=== PATIENT | female | born 1955 | race Caucasian/White ===

== ENCOUNTER 2019-11-24 12:12 | IRF | payer MEDICARE, SELFPAY ==
--- NOTE | ~2019-11-24 | CT_ITS ---
EXAMINATION: CT brain wo con DATE: 11/28/2019 20:06 INDICATION: Recent right-sided weakness with more acute confusion and speech deficit. TECHNIQUE: Computed tomography (CT) of the head was performed without intravenous contrast. Sagittal and coronal reconstructions were performed. The mA was adjusted according to patient size. Iterative reconstruction technique was employed. The dose-length product was 605.33 mGy-cm. COMPARISON: head CT dated 02/12/2018 and brain MR dated 02/13/2018 FINDINGS: Multiple small regions of encephalomalacia along the bilateral medial frontal and parietal lobes with large region of encephalomalacia in the left frontoparietal region consistent with chronic infarcts. Additional moderate sized region of encephalomalacia consistent with chronic infarct in the left tem glow-sbbrvjt-gdvpkliso region. Small old lacunar infarct at the right thalamus. No acute intracranial hemorrhage, acute infarction or abnormal extra axial fluid collection. Ventricles are normal and sym metric. No mass/mass effect. Mucosal thickening in the left maxillary and bilateral ethmoid sinuses. The orbits and mastoid air cells are normal. Intracranial calcified cerebral atherosclerosis is noted . IMPRESSION: 1. Multiple chronic infarcts in the bilateral cerebral hemispheres and in the right thalamus as detai led above. No evident acute intracranial process. Reviewed, dictated and finalized at location A. OR SALES MANAGER IMPRESSION: 1. Multiple chronic infarcts in the bilateral cerebral hemispheres and in the r ight thalamus as detailed above. No evident acute intracranial process.
[2019-11-24 12:15] VITALS: BP 149/55; PULSE 77; RESP 19; TEMP 36.3; O2SAT 100; BMI 36.0
[2019-11-24 12:50] VITALS: BMI 36.4
--- NOTE | 2019-11-24 12:52 | ADMGEN ---
This patient, Norma Kern, was admitted to [facility] Room 222-02. Patient/family oriented to hospital policies and general routines including ID bracelet, bed and alarms, visiting hours, pain management, procedures, bathroom and other care routines, personal items, smoking policy, room service/diet, and visiting hours. Valuables list has been completed. Information on how to activate the Rapid Response Team has been discussed. Patient/Family are encouraged to report perceived risks to care and to ask questions if they do not understand what they are told or what they should do.
[2019-11-24 13:44] LABS: Glucose Point of Care 202 (65-105)
[2019-11-24 17:07] LABS: Glucose Point of Care 240 (65-105)
[2019-11-24] MEDS: INSULIN ASPART (*BKC) 100 UNITS/ML SUB-Q (17:17)
[2019-11-24] MEDS: APIXABAN 5 MG TABLET PO (17:19)
[2019-11-24] MEDS: glipiZIDE 5 MG TABLET PO (17:19)
[2019-11-24] MEDS: POTASSIUM CHLORIDE 20 MEQ PACKET (FOR LIQUID) PO (17:20)
[2019-11-24 20:54] LABS: Glucose Point of Care 118 (65-105)
[2019-11-24 21:30] VITALS: BP 110/72; PULSE 101; RESP 20; TEMP 36.6; O2SAT 98
[2019-11-25 05:25] LABS: Basophils Percent Auto 0.4 % (0.2-1.2); Eosinophils Absolute Auto 0.1 K/mm3 (0-0.3); Eosinophils Percent Auto 2.5 % (0-4.4); Hematocrit 34.1 % (37.0-47.0); Hemoglobin 10.8 g/dL (12.0-15.0); Immature Granulocyte Absolute 0.04 K/mm3 (0.00-0.031); Immature Granulocyte Percent A 0.7 % (0-0.5); Lymphocytes Absolute Auto 2.06 K/mm3 (0.9-3.2); Lymphocytes Percent Auto 36.7 % (18.3-44.2); Mean Corpuscular HGB Conc 31.7 g/dl (32-36); Mean Corpuscular Hemoglobin 27.5 pg (26-34); Mean Corpuscular Volume 86.8 fl (80-100); Mean Platelet Volume 12.3 fl (7.4-10.4); Monocytes Absolute Auto 0.6 K/mm3 (0.1-0.6); Monocytes Percent Auto 10.3 % (2.6-8.5); Neutrophils Absolute Auto 2.8 K/mm3 (1.3-6.7); Neutrophils Percent Auto 49.4 % (45.5-73.1); Platelet Count Result 150 k/mm3 (150-375); Red Blood Count 3.93 M/mm3 (4.2-5.4); Red Cell Distribution Width 13.4 % (11.5-14.5); White Blood Count 5.6 K/mm3 (4.5-10.0)
[2019-11-25 05:31] LABS: Blood Urea Nitrogen 25 mg/dL (7-17); Calcium 9.4 mg/dL (8.4-10.2); Carbon Dioxide 25 mmol/L (22-30); Chloride 105 mmol/L (98-107); Cholesterol 112 mg/dL (0-200); Estimated CRCL calculation 91 ml/min; Estimated Glomerular Filt Rate > 60; Glucose 117 mg/dL (65-105); HDL Direct 32 mg/dL; Potassium 4.3 mmol/L (3.4-5.0); Sodium 136 mmol/L (137-145); Triglycerides 45 mg/dL (<150)
[2019-11-25 05:42] LABS: LDL Cholesterol Direct 70 mg/dL
[2019-11-25 06:00] VITALS: BP 120/52; PULSE 61; RESP 20; TEMP 36.9; O2SAT 97
[2019-11-25] MEDS: glipiZIDE 5 MG TABLET PO ×2 (06:53→17:41)
[2019-11-25 06:59] LABS: Glucose Point of Care 152 (65-105)
[2019-11-25] MEDS: AMLODIPINE BESYLATE 5 MG TABLET PO (08:52)
[2019-11-25] MEDS: FUROSEMIDE 40 MG TABLET PO (08:53)
[2019-11-25] MEDS: ATORVASTATIN 40 MG TABLET PO (08:53)
[2019-11-25] MEDS: APIXABAN 5 MG TABLET PO ×2 (08:53→17:40)
[2019-11-25] MEDS: ASPIRIN 325 MG ENTERIC TABLET PO (08:53)
[2019-11-25] MEDS: CHOLECALCIFEROL 1,000 UNIT TABLET 1000 UNITS PO (08:53)
[2019-11-25] MEDS: lisinopriL 20 MG TABLET 40 MG PO (08:54)
[2019-11-25] MEDS: PIOGLITAZONE HCL 30 MG TABLET PO (08:54)
[2019-11-25] MEDS: POTASSIUM CHLORIDE 20 MEQ PACKET (FOR LIQUID) PO ×2 (08:55→17:41)
[2019-11-25] MEDS: TAMSULOSIN HCL 0.4 MG CAPSULE PO (08:55)
--- NOTE | 2019-11-25 09:30 | WPDREHABHP ---
H&P: HPI History of Present Illness Chief complaint: CVA Narrative: Norma Kern is a 64 year old femaleHISTORY OF PRESENT ILLNESS: The patient's primary rehab impairment category is 0 1-stroke The etiologic diagnosis is left frontal and parietal stroke I saw this patient [id number] on November 25, 2019 at 9:30 a.m. The patient is a 64-year-old right-handed woman with a past medical history of strokes with right-sided weakness, CHF and type 2 diabetes mellitus who presented to [facility] on November 19, 2019 with an acute onset of weakness on her right side. The patient had been off her aspirin and Eliquis for the past 5 days prior to admission in preparation for a colonoscopy. CT of the head was negative for any acute abnormality and CTA of the head and neck showed an occluded right internal carotid artery beginning at the level of the bifurcation, proximal ICA high-grade stenosis, left vertebral artery intracranial segment calcific disease with moderate stenosis. She received tPA and was admitted to ICU for further treatment. Neurology was consulted and patient was started on apixaban and aspirin. The bedside swallowing study was completed and speech and language pathologist phone no sign or symptoms of aspiration or dysphagia. Patient was recommended for regular consistency diet with thin liquids. Medical complications during the hospital stay include new right-sided hemiparesis acute kidney injury and hypertension. Hypertension is being managed with medication changes and will need to be monitored and managed to about her rehab stay. She presents alert and oriented x3 and demonstrates impaired balance decreased coordination and decreased strength and endurance. She has right-sided hemiparesis over arm is much more affected particularly the proximal musculature than the leg she will be on Eliquis which will be sufficient for stroke prevention and also on DVT prophylaxis Therapy was initiated at the acute care facility and the patient transferred to us from [facility] in [place] on November 24, 2019 on November 24, 2019 FALLS OR SURGERIES: The patient has had no major surgeries in the 100 days prior to admission. They had no falls in the past year. They had no falls with injury in the past year. PAST MEDICAL HISTORY: abnormal mammogram, bilateral [place] carotid artery stenosis, fall, hypertension, nephrolithiasis, Osteo arthrosis, type 2 diabetes mellitus, ureteral stone, strokes 1 in 2017 and prior to that to in 2014, congestive heart failure, arthritis, chronic cellulitis, ejection fraction 65%, grade 2 diastolic dysfunction, positive colic guard test September 01, 2019, incontinence and urgency, on intended weight loss of 100 pounds due to increased intact and history of tobacco use PAST SURGICAL HISTORY: appendectomy, colonoscopy, exploratory laparoscopy, and also hemorrhoid ligation multiple times for internal hemorrhoids SOCIAL HISTORY: patient lives with her granddaughter and 1 level home with them to enter. Patient reported she was independent with ADLs and functional transfers. She requires assistance with ambulation and home making tasks. She uses a transport wheelchair or rolling walker when ambulating. FAMILY HISTORY: Mother had breast cancer, social history patient is a former school smoker she denies alcohol or illicit use of drugs PRIOR LEVEL OF FUNCTION: Eating was INDEPENDENT Oral Care was INDEPENDENT Toileting Hygiene was INDEPENDENT Shower/Bathing was INDEPENDENT Upper Body Dressing was INDEPENDENT Lower Body Dressing was INDEPENDENT Donning/Falling Water Footwear was INDEPENDENT Rolling Left and Right was INDEPENDENT Sit to Lying was INDEPENDENT Lying to Sitting was INDEPENDENT Sit to Stand was INDEPENDENT Bed to Chair Transfers was INDEPENDENT Toilet Transfers was INDEPENDENT Walking was INDEPENDENT >500 feet with NO DEVICE Wheelchair Mobility was NOT APPLICABLE MT
[2019-11-25 11:49] LABS: Glucose Point of Care 183 (65-105)
[2019-11-25 14:00] VITALS: BP 109/35; PULSE 61; RESP 18; TEMP 36.4; O2SAT 100
[2019-11-25 15:02] VITALS: BMI 36.4
--- NOTE | 2019-11-25 15:30 | PCNSR ---
On 11/25/19, the student, Susanne Christensen, provided care and completed [facility] documentation on this patient. I have reviewed the student's documentation and agree with the findings.
--- NOTE | 2019-11-25 16:29 | PCCCNOTE ---
On 11/25/19, the student, [Stan Patel ], provided care and completed [facility] documentation on this patient. I have reviewed the student's documentation and agree with the findings.
[2019-11-25 17:46] LABS: Glucose Point of Care 123 (65-105)
[2019-11-25 20:14] LABS: Glucose Point of Care 215 (65-105)
[2019-11-25 22:00] VITALS: BP 129/49; PULSE 62; RESP 20; TEMP 37.1; O2SAT 95
[2019-11-26 06:00] VITALS: BP 122/56; PULSE 68; RESP 20; TEMP 36.8; O2SAT 97
[2019-11-26] MEDS: glipiZIDE 5 MG TABLET PO ×2 (07:02→17:25)
[2019-11-26 07:09] LABS: Glucose Point of Care 153 (65-105)
[2019-11-26 08:00] VITALS: PULSE 68; RESP 20; O2SAT 97
[2019-11-26] MEDS: ATORVASTATIN 40 MG TABLET PO (08:36)
[2019-11-26] MEDS: APIXABAN 5 MG TABLET PO ×2 (08:37→17:25)
[2019-11-26] MEDS: ASPIRIN 81 MG ENTERIC TABLET PO (08:37)
[2019-11-26] MEDS: AMLODIPINE BESYLATE 5 MG TABLET 10 MG PO (08:37)
[2019-11-26] MEDS: CHOLECALCIFEROL 1,000 UNIT TABLET 1000 UNITS PO (08:37)
[2019-11-26] MEDS: FUROSEMIDE 40 MG TABLET PO (08:38)
[2019-11-26] MEDS: lisinopriL 20 MG TABLET 40 MG PO (08:38)
[2019-11-26] MEDS: TAMSULOSIN HCL 0.4 MG CAPSULE PO (08:38)
[2019-11-26] MEDS: PIOGLITAZONE HCL 30 MG TABLET PO (08:38)
--- NOTE | 2019-11-26 09:43 | RPD ---
INDIVIDUALIZED PLAN OF CARE FOR Norma Kern Brief Synthesis of Pre-Admission Screen, Post-Admission Evaluation and Therapy Evaluations: The patient presents to rehab with Left frontal and parietal stroke. Comorbidities include Lower extremity edema, insomnia, prior CVA with residual right-side weakness, occluded right internal carotid artery, left carotid artery bifurcation, proximal ICA with high-grade stenosis, hypertension, non-insulin dependent diabetes mellitus, chronic diastolic heart failure. The patient requires physician services for neurology services, medical oversight, and coordination of care. The patient needs physician monitoring and treatment of hypertension and monitoring for adverse reactions to new medications. The patient requires nursing services for frequent neuro checks, anticoagulation therapy, medication management and education, pressure relief and skin care management, monitoring of labs, bowel and bladder training, diabetes management and education, and fall/safety precautions. Deficits include:ADLs, Balance, Endurance, Mobility, Pain Management, ROM, Safety, Strength,Transfers Storage Wharfage Clerk/Case Management for: Discharge Planning and Patient/Family Counseling Physical Therapy: 5 days per week for 90 minutes. Treatments may include: Therapeutic Exercise, Gait Training, Neuromuscular Re-education, Transfer Training, Community Reintegration, Bed Mobility, Patient/Family Education, Wheelchair Mobility Group Therapy/Concurrent Therapy Rationales: -Improve attention span during functional activities in a distracted environment. -Enhance problem solving and/or adequate judgment skills during functional activities in a distracted environment. -Promote increased safety awareness in a distracted environment to reduce fall risk with functional tasks, transfers, and ambulation to allow a more safe, self-sufficient return to the home environment. -Improve dynamic balance skills to promote safety and independence with functional activities in a distracted environment for maximum gain. Occupational Therapy: 5 days per week for 90 minutes. Treatments may include: Therapeutic Exercise, Therapeutic Activity, Cognitive Training, Self-Care Transfer Training, Community Reintegration, Home Management, Patient/Family Education, Wheelchair Mobility Training, Energy Conservation Training Group Therapy/Concurrent Therapy Rationales: -Allow therapist to observe and teach generalization and carry-over of skills learned in individual therapy. -Enhance problem solving and sequencing skills during therapeutic activities in a distracted environment. -Promote increased safety awareness in a realistic setting to reduce fall risk with functional tasks due to visual and verbal distractions. -Increase functional level with ADLs, ADL transfers and use of adaptive equipment through therapeutic activities with others while promoting safety to allow a more safe, self-sufficient return home. Medical Prognosis: Good Anticipated Length of Stay: 12 days Rehab Goals: Eating Goal: 06-Independent Oral Hygiene Goal: 06-Independent Toileting Hygiene Goal: 04-Supervision or Touching Assistance Shower/Bathe Self Goal: 05-Setup or Clean Up Assistance Upper Body Dressing Goal: 05-Setup or Clean Up Assistance Lower Body Dressing Goal: 05-Setup or Clean Up Assistance Putting On/Taking Off Footwear Goal: 05-Setup or Clean Up Assistance Rolling Left and Right Goal: 06-Independent Sit to Lying Goal: 06-Independent Lying to Sitting on Side of Bed Goal: 06-Independent Sit to Stand Goal: 06-Independent Chair/Jkw-ro-Opzbl Transfer Goal: 06-Independent Toilet Transfer Goal: 06-Independent Car Transfer Goal: 05-Setup or Clean Up Assistance Walk 10' Goal: 06-Independent Walk 50' with Two Turns Goal: 06-Independent Walk 150' Goal: 06-Independent Walk 10' on Uneven Surface Goal: 06-Independent 1 Step (Curb) Goal: 05-Setup or Clean Up Assistance 4 Steps Goal: 05-Setup or Mame
[2019-11-26 12:27] LABS: Glucose Point of Care 147 (65-105)
--- NOTE | 2019-11-26 12:30 | WPDNEURORHBP ---
Subjective Date/time seen: 11/26/19 12:30 Interval history: patient is here for stroke with the right side hemiparesis and engage in therapy does not have any new specific complaints In particular she denies any headache double vision blurred vision chest pain shortness of breath fever chills sore throat diarrhea abdominal pain or any urinary or bowel problems Review of Systems Constitutional: Constitutional: Reports no additional constitutional complaints Eyes: Eyes: Reports no additional eye complaints ENT: Reports system reviewed and no additional complaints, except as documented Cardiovascular: Cardiovascular: Reports no additional cardiovascular complaints Respiratory: Respiratory: Reports no additional respiratory complaints Gastrointestinal: Gastrointestinal: Reports no additional gastrointestinal complaints Genitourinary: Genitourinary: Reports no additional female genitourinary complaints Musculoskeletal: Musculoskeletal: Reports no additional musculoskeletal complaints Integumentary/Breasts: Skin/Breast: Reports system reviewed and no additional complaints, except as docu Neurologic: Reports system reviewed and no additional complaints, except as documented Psychiatric: Psychiatric: Reports no additional psychiatric complaints Functional Status Ambulation Ability Ability to Ambulate 10 Feet: Minimum Assistance X 1 Ability to Ambulate 50 Feet With 2 Turns: Minimum Assistance X 1 Ambulation Assistive Devices: Walker, Wheeled Transfers Ability Ability to Transfer In/Out of Chair: Moderate Assistance X 1 Exam Const: General: comfortable and no acute distress HENMT: General nose exam: Normal nares present Mouth: Yes moist mucous membranes Eyes: General: appearance normal, both eyes and all related structures Neck: Neck: supple and no JVD Resp: Effort & Inspection: normal respiratory effort Auscultation: clear to auscultation bilaterally Cardio: Rate: regular rate Rhythm: regular rhythm GI: GI Palp: Yes Soft to palpation Auscultation: normal bowel sounds Skin: General skin exam: normal color and no rashes or lesions noted Neuro: Other: patient has fluent speech and relatively intact cranial examination but does have [id number] right-sided hemiparesis which is slowly improving she is quite motivated and engage in therapy and no new evidence of any further neurological deficit Extrem: General: normal to inspection Objective Data Vital Signs Vital Signs: Vital Signs - 24 hr 11/25/19 14:00 11/25/19 22:00 11/26/19 06:00 Temperature 36.4 C L 37.1 C 36.8 C Pulse Rate 61 62 68 Respiratory Rate 18 20 20 Blood Pressure 109/35 L 129/49 L 122/56 L Pulse Oximetry 100 95 97 11/26/19 08:00 Temperature Pulse Rate 68 Respiratory Rate 20 Blood Pressure Pulse Oximetry 97 Intake/Output Intake/Output: Intake & Output 11/23/19 11/24/19 11/25/19 11/26/19 23:59 23:59 23:59 23:59 Intake Total 480 840 Balance 480 840 Meds/Results Medications: Active Medications Generic Name Dose Route Start Last Admin Trade Name Freq PRN Reason Stop Dose Admin Amlodipine Besylate 10 mg 11/26/19 09:00 11/26/19 08:37 Norvasc PO 10 mg DAILY JOEY Administration Apixaban 5 mg 11/24/19 17:00 11/26/19 08:37 Eliquis PO 5 mg BID JOEY Administration Aspirin 81 mg 11/26/19 09:00 11/26/19 08:37 Aspirin Ec PO 81 mg DAILY JOEY Administration Atorvastatin Calcium 40 mg 11/25/19 09:00 11/26/19 08:36 Lipitor PO 40 mg DAILY JOEY Administration Dextrose 12.5 gm 11/24/19 14:00 Dextrose 50% Syringe IV PUSH PRN PRN Hypoglycemia Protocol Furosemide 40 mg 11/25/19 09:00 11/26/19 08:38 Lasix Tablet PO 40 mg DAILY JOEY Administration Glipizide 5 mg 11/24/19 16:30 11/26/19 07:02 Glucotrol PO 5 mg BIDAC JOEY Administration Glucagon 1 mg 11/24/19 14:00 Glucagon For Inj IM PRN PRN Hypoglycemia Protocol
[2019-11-26] MEDS: TOLNAFTATE 1% POWDER 45 GM BTL 1 APPLIC TOPICAL ×3 (12:44→17:26)
[2019-11-26] MEDS: POTASSIUM CHLORIDE 20 MEQ TABLET.ER PO (12:48)
[2019-11-26 15:00] VITALS: BP 97/32; PULSE 52; RESP 16; TEMP 36.3; O2SAT 97
[2019-11-26 17:21] LABS: Glucose Point of Care 158 (65-105)
[2019-11-26 22:00] VITALS: BP 114/45; PULSE 54; RESP 19; TEMP 36.3; O2SAT 97
[2019-11-27 06:00] VITALS: BP 150/51; PULSE 62; RESP 18; TEMP 36.3; O2SAT 97
[2019-11-27] MEDS: glipiZIDE 5 MG TABLET PO ×2 (06:34→18:20)
[2019-11-27 06:41] LABS: Glucose Point of Care 124 (65-105)
[2019-11-27] MEDS: POTASSIUM CHLORIDE 20 MEQ TABLET.ER PO (09:06)
[2019-11-27] MEDS: AMLODIPINE BESYLATE 5 MG TABLET 10 MG PO (09:07)
[2019-11-27] MEDS: ASPIRIN 81 MG ENTERIC TABLET PO (09:07)
[2019-11-27] MEDS: APIXABAN 5 MG TABLET PO ×2 (09:07→18:20)
[2019-11-27] MEDS: PIOGLITAZONE HCL 30 MG TABLET PO (09:08)
[2019-11-27] MEDS: TAMSULOSIN HCL 0.4 MG CAPSULE PO (09:08)
[2019-11-27] MEDS: lisinopriL 20 MG TABLET 40 MG PO (09:08)
[2019-11-27] MEDS: FUROSEMIDE 40 MG TABLET PO (09:08)
[2019-11-27] MEDS: ATORVASTATIN 40 MG TABLET PO (09:08)
[2019-11-27] MEDS: INSULIN ASPART (*BKC) 100 UNITS/ML SUB-Q (09:09)
[2019-11-27] MEDS: TOLNAFTATE 1% POWDER 45 GM BTL 1 APPLIC TOPICAL ×3 (09:10→19:35)
[2019-11-27] MEDS: CHOLECALCIFEROL 1,000 UNIT TABLET 1000 UNITS PO (09:11)
[2019-11-27 12:25] LABS: Glucose Point of Care 125 (65-105)
[2019-11-27 14:00] VITALS: BP 99/31; PULSE 69; RESP 18; TEMP 36.6; O2SAT 90
[2019-11-27 17:47] LABS: Glucose Point of Care 106 (65-105)
[2019-11-27 19:41] LABS: Glucose Point of Care 186 (65-105)
[2019-11-27 22:00] VITALS: BP 95/33; PULSE 63; RESP 19; TEMP 36.7; O2SAT 96
[2019-11-28 06:00] VITALS: BP 141/51; PULSE 58; RESP 19; TEMP 36.2; O2SAT 100
[2019-11-28] MEDS: glipiZIDE 5 MG TABLET PO ×2 (07:00→17:53)
[2019-11-28 07:16] LABS: Glucose Point of Care 135 (65-105)
[2019-11-28] MEDS: AMLODIPINE BESYLATE 5 MG TABLET 10 MG PO (08:03)
[2019-11-28] MEDS: POTASSIUM CHLORIDE 20 MEQ TABLET.ER PO (08:03)
[2019-11-28] MEDS: ATORVASTATIN 40 MG TABLET PO (08:04)
[2019-11-28] MEDS: CHOLECALCIFEROL 1,000 UNIT TABLET 1000 UNITS PO (08:04)
[2019-11-28] MEDS: lisinopriL 20 MG TABLET PO (08:04)
[2019-11-28] MEDS: ASPIRIN 81 MG ENTERIC TABLET PO (08:04)
[2019-11-28] MEDS: APIXABAN 5 MG TABLET PO ×2 (08:04→17:53)
[2019-11-28] MEDS: FUROSEMIDE 40 MG TABLET PO (08:04)
[2019-11-28] MEDS: TOLNAFTATE 1% POWDER 45 GM BTL 1 APPLIC TOPICAL ×3 (08:05→17:56)
[2019-11-28] MEDS: PIOGLITAZONE HCL 30 MG TABLET PO (08:05)
[2019-11-28] MEDS: TAMSULOSIN HCL 0.4 MG CAPSULE PO (08:05)
[2019-11-28] MEDS: ACETAMINOPHEN 325 MG TABLET 650 MG PO (11:59)
[2019-11-28 12:14] LABS: Glucose Point of Care 161 (65-105)
[2019-11-28 14:00] VITALS: BP 110/53; PULSE 62; RESP 18; TEMP 36.9; O2SAT 99
--- NOTE | 2019-11-28 14:10 | WPDNEURORHBP ---
Subjective Date/time seen: 11/28/19 14:10 Interval history: patient is little tired and fatigued after the therapy however does not have any complains of headache chest pain shortness of breath nausea vomiting diarrhea fevers or chills she does not have any other neurological complains also apart from the fact that she still show signs of right-sided hemiparesis which is in fact is improving rather slowly Review of Systems Constitutional: Constitutional: Reports no additional constitutional complaints Eyes: Eyes: Reports no additional eye complaints ENT: Reports system reviewed and no additional complaints, except as documented Cardiovascular: Cardiovascular: Reports no additional cardiovascular complaints Respiratory: Respiratory: Reports no additional respiratory complaints Gastrointestinal: Gastrointestinal: Reports no additional gastrointestinal complaints Genitourinary: Genitourinary: Reports no additional female genitourinary complaints Musculoskeletal: Musculoskeletal: Reports no additional musculoskeletal complaints Integumentary/Breasts: Skin/Breast: Reports system reviewed and no additional complaints, except as docu Neurologic: Reports system reviewed and no additional complaints, except as documented Psychiatric: Psychiatric: Reports no additional psychiatric complaints Functional Status Ambulation Ability Ability to Ambulate 10 Feet: Minimum Assistance X 1 Ability to Ambulate 50 Feet With 2 Turns: Minimum Assistance X 1 Ambulation Assistive Devices: Walker, Wheeled Transfers Ability Ability to Transfer In/Out of Chair: Moderate Assistance X 1 Exam Const: General: comfortable and no acute distress HENMT: General nose exam: Normal nares present Mouth: Yes moist mucous membranes Eyes: General: appearance normal, both eyes and all related structures Neck: Neck: supple and no JVD Resp: Effort & Inspection: normal respiratory effort Auscultation: clear to auscultation bilaterally Cardio: Rate: regular rate Rhythm: regular rhythm GI: GI Palp: Yes Soft to palpation Auscultation: normal bowel sounds : External Female Exam: normal external appearance Skin: General skin exam: normal color and no rashes or lesions noted Neuro: Other: mild memory deficit and moderately severe right-sided hemiparesis needing assistance all the activities of daily living Extrem: General: normal to inspection Objective Data Vital Signs Vital Signs: Vital Signs - 24 hr 11/27/19 22:00 11/28/19 06:00 Temperature 36.7 C 36.2 C L Pulse Rate 63 58 L Respiratory Rate 19 19 Blood Pressure 95/33 L 141/51 H Pulse Oximetry 96 100 Intake/Output Intake/Output: Intake & Output 11/25/19 11/26/19 11/27/19 11/28/19 23:59 23:59 23:59 23:59 Intake Total 840 920 600 480 Balance 840 920 600 480 Meds/Results Medications: Active Medications Generic Name Dose Route Start Last Admin Trade Name Freq PRN Reason Stop Dose Admin Acetaminophen 650 mg 11/28/19 11:18 11/28/19 11:59 Tylenol Tablet PO 650 mg Q6H PRN Administration Mild Pain (1-3) or Fever Amlodipine Besylate 10 mg 11/26/19 09:00 11/28/19 08:03 Norvasc PO 10 mg DAILY JOEY Administration Apixaban 5 mg 11/24/19 17:00 11/28/19 08:04 Eliquis PO 5 mg BID JOEY Administration Aspirin 81 mg 11/26/19 09:00 11/28/19 08:04 Aspirin Ec PO 81 mg DAILY JOEY Administration Atorvastatin Calcium 40 mg 11/25/19 09:00 11/28/19 08:04 Lipitor PO 40 mg DAILY JOEY Administration Dextrose 12.5 gm 11/24/19 14:00 Dextrose 50% Syringe IV PUSH PRN PRN Hypoglycemia Protocol Furosemide 40 mg 11/25/19 09:00 11/28/19 08:04 Lasix Tablet PO 40 mg DAILY JOEY Administration Glipizide 5 mg 11/24/19 16:30 11/28/19 07:00 Glucotrol PO 5 mg BIDAC JOEY Administration Glucagon 1 mg 11/24/19 14:00 Glucagon For Inj IM PRN PRN Hypoglycemia Protocol Glucose 15 gm
[2019-11-28 17:44] LABS: Glucose Point of Care 134 (65-105)
[2019-11-28 19:40] LABS: Glucose Point of Care 184 (65-105)
--- NOTE | 2019-11-28 19:40 | PC.NURSE ---
Pt with increased confusion, delayed speech, and word finding difficulties. Dr Avendaño notified and new orders received.
[2019-11-28 20:00] VITALS: BP 134/62; PULSE 74; RESP 18; TEMP 36.5; O2SAT 100
[2019-11-28 20:35] LABS: Glucose Point of Care 148 (65-105)
[2019-11-29 06:00] VITALS: BP 135/50; PULSE 66; RESP 20; TEMP 37; O2SAT 98
[2019-11-29] MEDS: glipiZIDE 5 MG TABLET PO ×2 (06:53→17:37)
[2019-11-29 07:06] LABS: Glucose Point of Care 116 (65-105)
[2019-11-29] MEDS: ASPIRIN 81 MG ENTERIC TABLET PO (09:19)
[2019-11-29] MEDS: ATORVASTATIN 40 MG TABLET PO (09:19)
[2019-11-29] MEDS: lisinopriL 20 MG TABLET PO (09:19)
[2019-11-29] MEDS: FUROSEMIDE 40 MG TABLET PO (09:19)
[2019-11-29] MEDS: PIOGLITAZONE HCL 30 MG TABLET PO (09:19)
[2019-11-29] MEDS: POTASSIUM CHLORIDE 20 MEQ TABLET.ER PO (09:19)
[2019-11-29] MEDS: APIXABAN 5 MG TABLET PO ×2 (09:20→17:37)
[2019-11-29] MEDS: AMLODIPINE BESYLATE 5 MG TABLET 10 MG PO (09:20)
[2019-11-29] MEDS: CHOLECALCIFEROL 1,000 UNIT TABLET 1000 UNITS PO (09:20)
[2019-11-29] MEDS: TAMSULOSIN HCL 0.4 MG CAPSULE PO (09:20)
[2019-11-29] MEDS: TOLNAFTATE 1% POWDER 45 GM BTL 1 APPLIC TOPICAL ×3 (09:21→20:41)
[2019-11-29 09:24] VITALS: BP 130/92; PULSE 76
--- NOTE | 2019-11-29 10:45 | PCPTNOTE ---
Norma Kern was evaluated for a wheeled walker on 11/29/2019 by this physical therapist assistant finance manager. The wheeled walker will resolve patient's mobility limitations and will be used for ADL's within the home. The patient can safely use the wheeled walker. ?The wheeled walker will resolve the patient?s mobility deficits, including decreased strength of right side, decreased balance and endurance.
[2019-11-29 12:26] LABS: Glucose Point of Care 99 (65-105)
[2019-11-29 14:00] VITALS: BP 117/40; PULSE 69; RESP 18; TEMP 36.7; O2SAT 100
[2019-11-29 17:25] LABS: Glucose Point of Care 108 (65-105)
[2019-11-29 21:30] LABS: Glucose Point of Care 123 (65-105)
[2019-11-29 22:00] VITALS: BP 119/40; PULSE 56; RESP 19; TEMP 36.6; O2SAT 96
[2019-11-30 06:00] VITALS: BP 146/54; PULSE 77; RESP 18; TEMP 36.7; O2SAT 99
[2019-11-30] MEDS: glipiZIDE 5 MG TABLET PO ×2 (06:48→17:23)
[2019-11-30 07:00] LABS: Glucose Point of Care 92 (65-105)
[2019-11-30 08:25] VITALS: BP 118/52; PULSE 83
[2019-11-30] MEDS: POTASSIUM CHLORIDE 20 MEQ TABLET.ER PO (10:50)
[2019-11-30] MEDS: ASPIRIN 81 MG ENTERIC TABLET PO (10:50)
[2019-11-30] MEDS: APIXABAN 5 MG TABLET PO ×2 (10:50→17:23)
[2019-11-30] MEDS: AMLODIPINE BESYLATE 5 MG TABLET 10 MG PO (10:50)
[2019-11-30] MEDS: ATORVASTATIN 40 MG TABLET PO (10:51)
[2019-11-30] MEDS: PIOGLITAZONE HCL 30 MG TABLET PO (10:51)
[2019-11-30] MEDS: CHOLECALCIFEROL 1,000 UNIT TABLET 1000 UNITS PO (10:51)
[2019-11-30] MEDS: FUROSEMIDE 40 MG TABLET PO (10:51)
[2019-11-30] MEDS: lisinopriL 20 MG TABLET PO (10:51)
[2019-11-30] MEDS: TAMSULOSIN HCL 0.4 MG CAPSULE PO (10:52)
[2019-11-30] MEDS: TOLNAFTATE 1% POWDER 45 GM BTL 1 APPLIC TOPICAL ×3 (10:52→17:24)
--- NOTE | 2019-11-30 11:07 | PCPTNOTE ---
Addendum entered by CODEY CHAVEZ 12/10/19 09:21: wheelchair note amended 12/10/19- patient requires 22 wheelchair width due to patient's measurement hip to hip is 21 . Original Note: Olena Laboy PTA completed an inpatient rehab wheelchair evaluation on Norma Kern on 11/30/2019. The patient is unable to safely and independently ambulate household distances due to their current impairments. Their diagnosis is CVA and their impairments include decreased strength, decreased endurance, decreased range of motion, decreased balance and lower extremity weakness. Norma's weight bearing status is weight-bearing as tolerated on the bilateral lower legs. The patient demonstrates significant functional mobility limitations that impair their ability to participate in mobility-related activities of daily living (MRADLs), including toileting, feeding, dressing, grooming, and bathing in the customary locations in the home. These limitations cannot be sufficiently resolved by the use of an appropriately fitted cane or walker. It is recommended that the patient utilize a wheelchair for functional mobility within the home in order to facilitate optimal safety, independence and participation in all MRADL's and adequately access their home environment on a regular basis. The patient's home provides adequate access between rooms, maneuvering space, and surfaces to accommodate the recommended wheelchair. The use of a wheelchair for functional mobility is strongly recommended and the patient is receptive to using the wheelchair. The use of this wheelchair will significantly improve the patient's ability to participate in MRADLS and the patient will use it on a regular basis in the home. This will facilitate optimal safety, independence, and participation. The patient has demonstrated sufficient physical and mental capabilities needed to safely propel a manual wheelchair that is provided in the home during a typical day. Recommended Wheelchair Frame: standard Recommended Wheelchair Size: 22 x20 Recommended Wheelchair Cushion:standard Wheelchair Leg Recommendations: swing away leg rests - Anti-tippers are recommended due to patient demonstrating increased risk for falls. They would benefit from anti-tippers with added safety and stabilization. Olena Laboy PTA 11-30-2019 Evaluating Therapist Date I agree with and certify that the above recommendation is medically necessary. Referring Physician Date I agree with and certify that the above recommendation is medically necessary. Referring Physician Date
[2019-11-30 12:07] LABS: Glucose Point of Care 145 (65-105)
--- NOTE | 2019-11-30 12:25 | WPDNEURORHBP ---
Subjective Date/time seen: 11/30/19 12:25 Interval history: this patient is here because of stroke affecting the left frontoparietal area with moderately severe right-sided hemiparesis and not much of speech defect over the weekend she did have some problem having trouble with word finding and the question was whether not she suffered another stroke however she is back to what she was before the CT brain reveals old strokes and nothing acute Patient denies any headache chest pain or shortness of breath she was present during the team conference throughout and was able to answers questions and also able to ask questions quite normally Review of Systems Constitutional: Constitutional: Reports no additional constitutional complaints Eyes: Eyes: Reports no additional eye complaints ENT: Reports system reviewed and no additional complaints, except as documented Cardiovascular: Cardiovascular: Reports no additional cardiovascular complaints Respiratory: Respiratory: Reports no additional respiratory complaints Gastrointestinal: Gastrointestinal: Reports no additional gastrointestinal complaints Genitourinary: Genitourinary: Reports no additional female genitourinary complaints Musculoskeletal: Musculoskeletal: Reports no additional musculoskeletal complaints Integumentary/Breasts: Skin/Breast: Reports system reviewed and no additional complaints, except as docu Neurologic: Reports system reviewed and no additional complaints, except as documented Psychiatric: Psychiatric: Reports no additional psychiatric complaints Functional Status Ambulation Ability Ability to Ambulate 10 Feet: Minimum Assistance X 1 Ability to Ambulate 50 Feet With 2 Turns: Minimum Assistance X 1 Ambulation Assistive Devices: Walker, Wheeled Transfers Ability Ability to Transfer In/Out of Chair: Moderate Assistance X 1 Exam Const: General: comfortable and no acute distress HENMT: General nose exam: Normal nares present Mouth: Yes moist mucous membranes Eyes: General: appearance normal, both eyes and all related structures Neck: Neck: supple and no JVD Resp: Effort & Inspection: normal respiratory effort Auscultation: clear to auscultation bilaterally Cardio: Rate: regular rate Rhythm: regular rhythm GI: GI Palp: Yes Soft to palpation Auscultation: normal bowel sounds Skin: General skin exam: normal color and no rashes or lesions noted Neuro: Other: remains alert will oriented time place and person does have some trouble word-finding and at times possibly a subtle but present aphasia she is improving as for as the right-sided weakness is concerned and making progress Extrem: General: normal to inspection Objective Data Vital Signs Vital Signs: Vital Signs - 24 hr 11/29/19 14:00 11/29/19 22:00 11/30/19 06:00 Temperature 36.7 C 36.6 C 36.7 C Pulse Rate 69 56 L 77 Respiratory Rate 18 19 18 Blood Pressure 117/40 L 119/40 L 146/54 H Pulse Oximetry 100 96 99 11/30/19 08:25 Temperature Pulse Rate 83 Respiratory Rate Blood Pressure 118/52 L Pulse Oximetry Intake/Output Intake/Output: Intake & Output 11/27/19 11/28/19 11/29/19 11/30/19 23:59 23:59 23:59 23:59 Intake Total 600 960 570 250 Balance 600 960 570 250 Meds/Results Medications: Active Medications Generic Name Dose Route Start Last Admin Trade Name Freq PRN Reason Stop Dose Admin Acetaminophen 650 mg 11/28/19 11:18 11/28/19 11:59 Tylenol Tablet PO 650 mg Q6H PRN Administration Mild Pain (1-3) or Fever Amlodipine Besylate 10 mg 11/26/19 09:00 11/30/19 10:50 Norvasc PO 10 mg DAILY JEOY Administration Apixaban 5 mg 11/24/19 17:00 11/30/19 10:50 Eliquis PO 5 mg BID JOEY Administration Aspirin 81 mg 11/26/19 09:00 11/30/19 10:50 Aspirin Ec PO 81 mg DAILY JOEY Administration Atorvastatin Calcium 40 mg 11/25/19 09:00 11/30/19 10:51 Lipitor PO 40 mg DAILY JOEY Administration Dextrose 12.5 gm 02
[2019-11-30 14:00] VITALS: BP 132/46; PULSE 75; RESP 21; TEMP 36.7; O2SAT 98
[2019-11-30 17:14] LABS: Glucose Point of Care 174 (65-105)
[2019-11-30 21:51] LABS: Glucose Point of Care 169 (65-105)
[2019-11-30 22:00] VITALS: BP 101/72; PULSE 71; RESP 20; TEMP 36.8; O2SAT 92
[2019-12-01] MEDS: glipiZIDE 5 MG TABLET PO ×2 (05:37→17:25)
[2019-12-01 06:00] VITALS: BP 124/48; PULSE 59; RESP 18; TEMP 36.4; O2SAT 100
[2019-12-01 06:25] LABS: Hemoglobin A1C 6.6 % (<5.7)
[2019-12-01 07:09] LABS: Add Urine Microscopic? YES; Appearance Urine Clear (Clear); Bilirubin Urine Negative (Negative); Blood Urine Negative (Negative); Color Urine Yellow (Yellow); Glucose Urine UA Negative (Negative); Hyaline Casts Urine 15-19 /lpf; Ketones Urine Negative (Negative); Leukocyte Esterase Ur 1+ LEU/UL (Negative); Mucus Urine Rare /lpf; Nitrate Urine Negative (Negative); Protein Urine Negative (Negative); Specific Grav Ur 1.017 (1.001-1.035); Squamous Epithelial Cell Urine Many /hpf (Few); Transitional Epi Cells Urine Rare /hpf (None Seen); Urobilinogen Urine Negative mg/dL (<2.0)
[2019-12-01 07:43] LABS: Glucose Point of Care 106 (65-105)
[2019-12-01 08:00] VITALS: PULSE 59; RESP 18; O2SAT 100
[2019-12-01] MEDS: FUROSEMIDE 40 MG TABLET PO (09:32)
[2019-12-01] MEDS: ASPIRIN 81 MG ENTERIC TABLET PO (09:33)
[2019-12-01] MEDS: APIXABAN 5 MG TABLET PO ×2 (09:33→17:25)
[2019-12-01] MEDS: ATORVASTATIN 40 MG TABLET PO (09:33)
[2019-12-01] MEDS: lisinopriL 20 MG TABLET PO (09:33)
[2019-12-01] MEDS: PIOGLITAZONE HCL 30 MG TABLET PO (09:33)
[2019-12-01] MEDS: POTASSIUM CHLORIDE 20 MEQ TABLET.ER PO (09:33)
[2019-12-01] MEDS: TAMSULOSIN HCL 0.4 MG CAPSULE PO (09:33)
[2019-12-01] MEDS: TOLNAFTATE 1% POWDER 45 GM BTL 1 APPLIC TOPICAL ×3 (09:34→17:26)
[2019-12-01] MEDS: CHOLECALCIFEROL 1,000 UNIT TABLET 1000 UNITS PO (09:34)
[2019-12-01] MEDS: AMLODIPINE BESYLATE 5 MG TABLET 10 MG PO (09:34)
--- NOTE | 2019-12-01 11:00 | WPDNEURORHBP ---
Subjective Date/time seen: 12/01/19 11:00 Interval history: apart from some speech and language function defect the patient remains awake and alert well oriented time place and person of course she does have a right-sided moderate hemiparesis for which she is working on the urinalysis does not indicate an active urinary tract infection and it did not reflex to culture No headache chest pain shortness of breath fever chills or sore throat Review of Systems Constitutional: Constitutional: Reports no additional constitutional complaints Eyes: Eyes: Reports no additional eye complaints ENT: Reports system reviewed and no additional complaints, except as documented Cardiovascular: Cardiovascular: Reports no additional cardiovascular complaints Respiratory: Respiratory: Reports no additional respiratory complaints Gastrointestinal: Gastrointestinal: Reports no additional gastrointestinal complaints Genitourinary: Genitourinary: Reports no additional female genitourinary complaints Musculoskeletal: Musculoskeletal: Reports no additional musculoskeletal complaints Integumentary/Breasts: Skin/Breast: Reports system reviewed and no additional complaints, except as docu Neurologic: Reports system reviewed and no additional complaints, except as documented Psychiatric: Psychiatric: Reports no additional psychiatric complaints Functional Status Ambulation Ability Ability to Ambulate 10 Feet: Minimum Assistance X 1 Ability to Ambulate 50 Feet With 2 Turns: Minimum Assistance X 1 Ability to Ambulate 150 Feet: Minimum Assistance X 1 Ambulation Assistive Devices: Walker, Wheeled Transfers Ability Ability to Transfer In/Out of Chair: Moderate Assistance X 1 Exam Const: General: comfortable and no acute distress HENMT: General nose exam: Normal nares present Mouth: Yes moist mucous membranes Eyes: General: appearance normal, both eyes and all related structures Neck: Neck: supple and no JVD Resp: Effort & Inspection: normal respiratory effort Auscultation: clear to auscultation bilaterally Cardio: Rate: regular rate Rhythm: regular rhythm GI: GI Palp: Yes Soft to palpation Auscultation: normal bowel sounds Skin: General skin exam: normal color and no rashes or lesions noted Neuro: Other: aphasia of [id number] nature and moderately severe right-sided hemiparesis Extrem: General: normal to inspection Objective Data Vital Signs Vital Signs: Vital Signs - 24 hr 11/30/19 14:00 11/30/19 22:00 12/01/19 06:00 Temperature 36.7 C 36.8 C 36.4 C Pulse Rate 75 71 59 L Respiratory Rate 21 H 20 18 Blood Pressure 132/46 L 101/72 124/48 L Pulse Oximetry 98 92 100 Intake/Output Intake/Output: Intake & Output 11/28/19 11/29/19 11/30/19 12/01/19 23:59 23:59 23:59 23:59 Intake Total 960 570 640 240 Balance 960 570 640 240 Meds/Results Medications: Active Medications Generic Name Dose Route Start Last Admin Trade Name Freq PRN Reason Stop Dose Admin Acetaminophen 650 mg 11/28/19 11:18 11/28/19 11:59 Tylenol Tablet PO 650 mg Q6H PRN Administration Mild Pain (1-3) or Fever Amlodipine Besylate 10 mg 11/26/19 09:00 12/01/19 09:34 Norvasc PO 10 mg DAILY JOEY Administration Apixaban 5 mg 11/24/19 17:00 12/01/19 09:33 Eliquis PO 5 mg BID JOEY Administration Aspirin 81 mg 11/26/19 09:00 12/01/19 09:33 Aspirin Ec PO 81 mg DAILY JOEY Administration Atorvastatin Calcium 40 mg 11/25/19 09:00 12/01/19 09:33 Lipitor PO 40 mg DAILY JOEY Administration Dextrose 12.5 gm 11/24/19 14:00 Dextrose 50% Syringe IV PUSH PRN PRN Hypoglycemia Protocol Furosemide 40 mg 11/25/19 09:00 12/01/19 09:32 Lasix Tablet PO 40 mg DAILY JOEY Administration Glipizide 5 mg 11/24/19 16:30 12/01/19 05:37 Glucotrol PO 5 mg BIDAC JOEY Administration Glucagon 1 mg 11/24/19 14:00 Glucagon For Inj IM PRN PRN Hypoglycemia
[2019-12-01 12:14] LABS: Glucose Point of Care 159 (65-105)
--- NOTE | 2019-12-01 13:19 | PCDIET ---
Nutrition Follow-Up Complete: Nutrition Diagnosis: Obese, Class II related to excessive caloric intake as evidenced by BMI of 36.5. Nutrition Goal: Patient will continue to eat 100% of meals. Goal generally met with patient consuming 75-100% of meals on diabetic, heart healthy diet, which is appropriate. Last recorded weight is 96.4 kg. Recommend obtaining new weight. Bowel Motility: Last documented bowel movement on 11/28/19. Labs Reviewed: HgbA1C (6.6) Meds Noted: Lasix, Glucotrol, Novolog, Actos, KCl, Vitamin D Additional Notes: Abdomen macerated; no other skin issues noted. Recommend continuing present diet and monitoring with same goal. Nutrition Evaluation and Monitoring: Will follow up in 7 days.
[2019-12-01 14:00] VITALS: BP 114/65; PULSE 77; RESP 18; TEMP 36.6; O2SAT 100
[2019-12-01 17:11] LABS: Glucose Point of Care 129 (65-105)
[2019-12-01 22:00] VITALS: BP 102/50; PULSE 76; RESP 18; TEMP 36.5; O2SAT 98
[2019-12-02 05:12] LABS: Basophils Percent Auto 0.4 % (0.2-1.2); Eosinophils Absolute Auto 0.1 K/mm3 (0-0.3); Eosinophils Percent Auto 2.9 % (0-4.4); Hematocrit 29.7 % (37.0-47.0); Hemoglobin 9.4 g/dL (12.0-15.0); Immature Granulocyte Absolute 0.02 K/mm3 (0.00-0.031); Immature Granulocyte Percent A 0.4 % (0-0.5); Lymphocytes Absolute Auto 1.23 K/mm3 (0.9-3.2); Lymphocytes Percent Auto 27.2 % (18.3-44.2); Mean Corpuscular HGB Conc 31.6 g/dl (32-36); Mean Corpuscular Hemoglobin 27.5 pg (26-34); Mean Corpuscular Volume 86.8 fl (80-100); Mean Platelet Volume 12.3 fl (7.4-10.4); Monocytes Absolute Auto 0.6 K/mm3 (0.1-0.6); Monocytes Percent Auto 13.9 % (2.6-8.5); Neutrophils Absolute Auto 2.5 K/mm3 (1.3-6.7); Neutrophils Percent Auto 55.2 % (45.5-73.1); Platelet Count Result 151 k/mm3 (150-375); Red Blood Count 3.42 M/mm3 (4.2-5.4); Red Cell Distribution Width 14.5 % (11.5-14.5); White Blood Count 4.5 K/mm3 (4.5-10.0)
[2019-12-02 05:50] LABS: Blood Urea Nitrogen 49 mg/dL (7-17); Calcium 9.6 mg/dL (8.4-10.2); Carbon Dioxide 25 mmol/L (22-30); Chloride 102 mmol/L (98-107); Estimated CRCL calculation 79 ml/min; Estimated Glomerular Filt Rate > 60; Glucose 103 mg/dL (65-105); Potassium 4.6 mmol/L (3.4-5.0); Sodium 134 mmol/L (137-145)
[2019-12-02 06:00] VITALS: BP 124/48; PULSE 66; RESP 18; TEMP 36.5; O2SAT 95
[2019-12-02] MEDS: glipiZIDE 5 MG TABLET PO ×2 (06:24→17:56)
[2019-12-02 07:14] LABS: Glucose Point of Care 110 (65-105)
[2019-12-02] MEDS: ATORVASTATIN 40 MG TABLET PO (09:17)
[2019-12-02] MEDS: POTASSIUM CHLORIDE 20 MEQ TABLET.ER PO (09:17)
[2019-12-02] MEDS: APIXABAN 5 MG TABLET PO ×2 (09:17→17:55)
[2019-12-02] MEDS: AMLODIPINE BESYLATE 5 MG TABLET 10 MG PO (09:17)
[2019-12-02] MEDS: lisinopriL 20 MG TABLET PO (09:18)
[2019-12-02] MEDS: PIOGLITAZONE HCL 30 MG TABLET PO (09:18)
[2019-12-02] MEDS: FUROSEMIDE 40 MG TABLET PO (09:18)
[2019-12-02] MEDS: ASPIRIN 81 MG ENTERIC TABLET PO (09:18)
[2019-12-02] MEDS: CHOLECALCIFEROL 1,000 UNIT TABLET 1000 UNITS PO (09:18)
[2019-12-02] MEDS: TAMSULOSIN HCL 0.4 MG CAPSULE PO (09:19)
[2019-12-02] MEDS: TOLNAFTATE 1% POWDER 45 GM BTL 1 APPLIC TOPICAL ×3 (09:20→17:56)
[2019-12-02 12:13] LABS: Glucose Point of Care 156 (65-105)
[2019-12-02 14:00] VITALS: BP 136/67; PULSE 77; RESP 18; TEMP 36.6; O2SAT 97
[2019-12-02 16:00] VITALS: PULSE 73; RESP 18; O2SAT 98
[2019-12-02 17:32] LABS: Glucose Point of Care 184 (65-105)
[2019-12-02 20:25] VITALS: BP 134/62; PULSE 73; RESP 18; TEMP 36.2; O2SAT 98
[2019-12-03 06:15] VITALS: BP 156/72; PULSE 78; RESP 16; TEMP 36.8; O2SAT 96
[2019-12-03] MEDS: glipiZIDE 5 MG TABLET PO ×2 (06:41→18:17)
[2019-12-03 07:40] LABS: Glucose Point of Care 96 (65-105)
[2019-12-03] MEDS: ATORVASTATIN 40 MG TABLET PO (09:18)
[2019-12-03] MEDS: ASPIRIN 81 MG ENTERIC TABLET PO (09:18)
[2019-12-03] MEDS: AMLODIPINE BESYLATE 5 MG TABLET 10 MG PO (09:18)
[2019-12-03] MEDS: POTASSIUM CHLORIDE 20 MEQ TABLET.ER PO (09:18)
[2019-12-03] MEDS: CHOLECALCIFEROL 1,000 UNIT TABLET 1000 UNITS PO (09:18)
[2019-12-03] MEDS: FUROSEMIDE 40 MG TABLET PO (09:18)
[2019-12-03] MEDS: APIXABAN 5 MG TABLET PO ×2 (09:18→18:17)
[2019-12-03] MEDS: TAMSULOSIN HCL 0.4 MG CAPSULE PO (09:19)
[2019-12-03] MEDS: PIOGLITAZONE HCL 30 MG TABLET PO (09:19)
[2019-12-03] MEDS: TOLNAFTATE 1% POWDER 45 GM BTL 1 APPLIC TOPICAL ×3 (09:19→18:18)
[2019-12-03] MEDS: lisinopriL 20 MG TABLET PO (09:19)
[2019-12-03 12:44] LABS: Glucose Point of Care 149 (65-105)
--- NOTE | 2019-12-03 12:45 | PCPTNOTE ---
Pt required increased encouragement to participate. Pt would often refuse to perform a task and then start to perform task. While performing the task Pt would continually state No while continuing with task. Pt required reinforcement for safety and hand placement with transfers and ambulation while using a device. Pt required extra time to complete tasks as well due to poor participation.
[2019-12-03 14:00] VITALS: BP 134/77; PULSE 85; RESP 20; TEMP 36.7; O2SAT 95
--- NOTE | 2019-12-03 14:50 | WPDNEURORHBP ---
Subjective Date/time seen: 12/03/19 14:50 Interval history: patient herself does not feel that she is improving however there is a clear improvement in her speech and language function and she is able to communicate fairly well both on the telephone which I had noticed and also the with this examiner although she does have evidence of mixed aphasia and of course right-sided hemiparesis which we are working on it she denies any headache chest pain shortness of breath nausea vomiting belly Clau and fever chills Review of Systems Constitutional: Constitutional: Reports no additional constitutional complaints Eyes: Eyes: Reports no additional eye complaints ENT: Reports system reviewed and no additional complaints, except as documented Cardiovascular: Cardiovascular: Reports no additional cardiovascular complaints Respiratory: Respiratory: Reports no additional respiratory complaints Gastrointestinal: Gastrointestinal: Reports no additional gastrointestinal complaints Genitourinary: Genitourinary: Reports no additional female genitourinary complaints Musculoskeletal: Musculoskeletal: Reports no additional musculoskeletal complaints Integumentary/Breasts: Skin/Breast: Reports system reviewed and no additional complaints, except as docu Neurologic: Reports system reviewed and no additional complaints, except as documented Psychiatric: Psychiatric: Reports no additional psychiatric complaints Functional Status Ambulation Ability Ability to Ambulate 10 Feet: Contact Guard Ability to Ambulate 50 Feet With 2 Turns: Contact Guard Ability to Ambulate 150 Feet: Minimum Assistance X 1 Ambulation Assistive Devices: Walker, Wheeled Transfers Ability Ability to Transfer In/Out of Chair: Moderate Assistance X 1 Exam Const: General: comfortable and no acute distress HENMT: General nose exam: Normal nares present Mouth: Yes moist mucous membranes Eyes: General: appearance normal, both eyes and all related structures Neck: Neck: supple and no JVD Resp: Effort & Inspection: normal respiratory effort Auscultation: clear to auscultation bilaterally Cardio: Rate: regular rate Rhythm: regular rhythm GI: GI Palp: Yes Soft to palpation Auscultation: normal bowel sounds Skin: General skin exam: normal color and no rashes or lesions noted Neuro: Other: patient has expressive and comprehensive aphasia is in along with the improving right-sided hemiparesis she does not see herself however that is what this examiner feels that she is improving lb to slowly Extrem: General: normal to inspection Objective Data Vital Signs Vital Signs: Vital Signs - 24 hr 12/02/19 16:00 12/02/19 20:25 02/14/20 06:15 Temperature 36.2 C L 36.8 C Pulse Rate 73 73 78 Respiratory Rate 18 18 16 Blood Pressure 134/62 156/72 H Pulse Oximetry 98 98 96 Intake/Output Intake/Output: Intake & Output 11/30/19 12/01/19 12/02/19 12/03/19 23:59 23:59 23:59 23:59 Intake Total 640 760 720 600 Balance 640 760 720 600 Meds/Results Medications: Active Medications Generic Name Dose Route Start Last Admin Trade Name Freq PRN Reason Stop Dose Admin Acetaminophen 650 mg 11/28/19 11:18 11/28/19 11:59 Tylenol Tablet PO 650 mg Q6H PRN Administration Mild Pain (1-3) or Fever Amlodipine Besylate 10 mg 11/26/19 09:00 12/03/19 09:18 Norvasc PO 10 mg DAILY JOEY Administration Apixaban 5 mg 11/24/19 17:00 12/03/19 09:18 Eliquis PO 5 mg BID JOEY Administration Aspirin 81 mg 11/26/19 09:00 12/03/19 09:18 Aspirin Ec PO 81 mg DAILY JOEY Administration Atorvastatin Calcium 40 mg 11/25/19 09:00 12/03/19 09:18 Lipitor PO 40 mg DAILY JOEY Administration Dextrose 12.5 gm 11/24/19 14:00 Dextrose 50% Syringe IV PUSH PRN PRN Hypoglycemia Protocol Furosemide 40 mg 11/25/19 09:00 12/03/19 09:18 Lasix Tablet PO 40 mg DAILY JOEY Administration Glipizide 5 mg 11/24/19 16:30
[2019-12-03 17:47] LABS: Glucose Point of Care 99 (65-105)
[2019-12-03 22:00] VITALS: BP 140/72; PULSE 65; RESP 16; TEMP 36.8; O2SAT 100
[2019-12-04 06:00] VITALS: BP 138/55; PULSE 61; RESP 16; TEMP 36.4; O2SAT 99
[2019-12-04] MEDS: glipiZIDE 5 MG TABLET PO ×2 (06:53→16:45)
[2019-12-04 07:06] LABS: Glucose Point of Care 87 (65-105)
[2019-12-04] MEDS: APIXABAN 5 MG TABLET PO ×2 (09:23→16:46)
[2019-12-04] MEDS: PIOGLITAZONE HCL 30 MG TABLET PO (09:23)
[2019-12-04] MEDS: CHOLECALCIFEROL 1,000 UNIT TABLET 1000 UNITS PO (09:24)
[2019-12-04] MEDS: AMLODIPINE BESYLATE 5 MG TABLET 10 MG PO (09:24)
[2019-12-04] MEDS: ATORVASTATIN 40 MG TABLET PO (09:24)
[2019-12-04] MEDS: POTASSIUM CHLORIDE 20 MEQ TABLET.ER PO (09:24)
[2019-12-04] MEDS: lisinopriL 20 MG TABLET PO (09:24)
[2019-12-04] MEDS: ASPIRIN 81 MG ENTERIC TABLET PO (09:24)
[2019-12-04] MEDS: TAMSULOSIN HCL 0.4 MG CAPSULE PO (09:25)
[2019-12-04] MEDS: TOLNAFTATE 1% POWDER 45 GM BTL 1 APPLIC TOPICAL ×3 (09:25→16:46)
[2019-12-04] MEDS: FUROSEMIDE 40 MG TABLET PO (09:25)
--- NOTE | 2019-12-04 11:15 | WPDNEURORHBP ---
Subjective Date/time seen: December 04, 2019 at 11:30 a.m. Interval history: patient is here on the acute rehab after having had a stroke affecting the left side of the brain with the speech defect and right-sided hemiparesis her speech defect is improving and she is able to communicate quite well however the right hemiparesis is improving not to her satisfaction and she is concerned about it otherwise no headache no chest pain or shortness of breath no fever no chills no sore throat diarrhea or vomiting Review of Systems Constitutional: Constitutional: Reports no additional constitutional complaints Eyes: Eyes: Reports no additional eye complaints ENT: Reports system reviewed and no additional complaints, except as documented Cardiovascular: Cardiovascular: Reports no additional cardiovascular complaints Respiratory: Respiratory: Reports no additional respiratory complaints Gastrointestinal: Gastrointestinal: Reports no additional gastrointestinal complaints Genitourinary: Genitourinary: Reports no additional female genitourinary complaints Musculoskeletal: Musculoskeletal: Reports no additional musculoskeletal complaints Integumentary/Breasts: Skin/Breast: Reports system reviewed and no additional complaints, except as docu Neurologic: Reports system reviewed and no additional complaints, except as documented Psychiatric: Psychiatric: Reports no additional psychiatric complaints Functional Status Ambulation Ability Ability to Ambulate 10 Feet: Contact Guard Ability to Ambulate 50 Feet With 2 Turns: Contact Guard Ability to Ambulate 150 Feet: Contact Guard Ambulation Assistive Devices: Walker, Wheeled Transfers Ability Ability to Transfer In/Out of Chair: Moderate Assistance X 1 Exam Const: General: comfortable and no acute distress HENMT: General nose exam: Normal nares present Mouth: Yes moist mucous membranes Eyes: General: appearance normal, both eyes and all related structures Neck: Neck: supple and no JVD Resp: Effort & Inspection: normal respiratory effort Auscultation: clear to auscultation bilaterally Cardio: Rate: regular rate Rhythm: regular rhythm GI: GI Palp: Yes Soft to palpation Auscultation: normal bowel sounds : External Female Exam: normal external appearance Skin: General skin exam: normal color and no rashes or lesions noted Neuro: Other: mild but present subtle is speech defect but able to communicate quite well the right-sided hemiparesis is lagging behind the eye speech improvement however is still getting better and she is moving forward in the therapy and getting the stated goals Extrem: General: normal to inspection Objective Data Vital Signs Vital Signs: Vital Signs - 24 hr 12/04/19 14:00 12/04/19 22:00 12/05/19 06:00 Temperature 36.7 C 37.0 C 36.6 C Pulse Rate 65 72 69 Respiratory Rate 16 18 18 Blood Pressure 110/41 L 111/50 L 132/45 L Pulse Oximetry 100 97 100 Intake/Output Intake/Output: Intake & Output 12/02/19 12/03/19 12/04/19 12/05/19 23:59 23:59 23:59 23:59 Intake Total 720 840 680 240 Balance 720 840 680 240 Meds/Results Medications: Active Medications Generic Name Dose Route Start Last Admin Trade Name Freq PRN Reason Stop Dose Admin Acetaminophen 650 mg 11/28/19 11:18 11/28/19 11:59 Tylenol Tablet PO 650 mg Q6H PRN Administration Mild Pain (1-3) or Fever Amlodipine Besylate 10 mg 11/26/19 09:00 12/05/19 09:58 Norvasc PO 10 mg DAILY JOEY Administration Apixaban 5 mg 11/24/19 17:00 12/05/19 09:59 Eliquis PO 5 mg BID JOEY Administration Aspirin 81 mg 11/26/19 09:00 12/05/19 09:59 Aspirin Ec PO 81 mg DAILY JOEY Administration Atorvastatin Calcium 40 mg 11/25/19 09:00 12/05/19 09:59 Lipitor PO 40 mg DAILY JOEY Administration Dextrose 12.5 gm 11/24/19 14:00 Dextrose 50% Syringe IV PUSH PRN PRN Hypoglycemia Protocol Furosemide 40 mg 11/25/19 09:00
[2019-12-04 12:20] LABS: Glucose Point of Care 97 (65-105)
[2019-12-04 14:00] VITALS: BP 110/41; PULSE 65; RESP 16; TEMP 36.7; O2SAT 100
[2019-12-04 17:21] LABS: Glucose Point of Care 123 (65-105)
[2019-12-04 22:00] VITALS: BP 111/50; PULSE 72; RESP 18; TEMP 37; O2SAT 97
[2019-12-05 06:00] VITALS: BP 132/45; PULSE 69; RESP 18; TEMP 36.6; O2SAT 100
[2019-12-05] MEDS: glipiZIDE 5 MG TABLET PO ×2 (07:00→18:06)
[2019-12-05 07:07] LABS: Glucose Point of Care 99 (65-105)
[2019-12-05] MEDS: POTASSIUM CHLORIDE 20 MEQ TABLET.ER PO (09:58)
[2019-12-05] MEDS: AMLODIPINE BESYLATE 5 MG TABLET 10 MG PO (09:58)
[2019-12-05] MEDS: FUROSEMIDE 40 MG TABLET PO (09:59)
[2019-12-05] MEDS: TAMSULOSIN HCL 0.4 MG CAPSULE PO (09:59)
[2019-12-05] MEDS: PIOGLITAZONE HCL 30 MG TABLET PO (09:59)
[2019-12-05] MEDS: ATORVASTATIN 40 MG TABLET PO (09:59)
[2019-12-05] MEDS: lisinopriL 20 MG TABLET PO (09:59)
[2019-12-05] MEDS: APIXABAN 5 MG TABLET PO ×2 (09:59→18:06)
[2019-12-05] MEDS: ASPIRIN 81 MG ENTERIC TABLET PO (09:59)
[2019-12-05] MEDS: TOLNAFTATE 1% POWDER 45 GM BTL 1 APPLIC TOPICAL ×3 (09:59→18:06)
[2019-12-05] MEDS: CHOLECALCIFEROL 1,000 UNIT TABLET 1000 UNITS PO (09:59)
[2019-12-05 12:15] LABS: Glucose Point of Care 163 (65-105)
[2019-12-05 14:00] VITALS: BP 164/72; PULSE 74; RESP 18; TEMP 36.8; O2SAT 100
--- NOTE | 2019-12-05 14:17 | WPDNEURORHBP ---
Subjective Date/time seen: 12/05/19 14:17 Interval history: this 64-year-old woman is on the acute rehab after suffering from stroke of the left cerebral hemisphere with right-sided hemiparesis and speech defect she is a diabetic and does not want to frequent Accu-Cheks and we have cut down the number of time she is going to be checked she is also on the sliding scale insulin which is keeping the blood sugar in the decent range mostly 100s She denies any further neurological symptoms particularly no headache no chest pain no shortness of breath no neurological symptoms no fever no chills no sore throat Review of Systems Constitutional: Constitutional: Reports no additional constitutional complaints Eyes: Eyes: Reports no additional eye complaints ENT: Reports system reviewed and no additional complaints, except as documented Cardiovascular: Cardiovascular: Reports no additional cardiovascular complaints Respiratory: Respiratory: Reports no additional respiratory complaints Gastrointestinal: Gastrointestinal: Reports no additional gastrointestinal complaints Genitourinary: Genitourinary: Reports no additional female genitourinary complaints Musculoskeletal: Musculoskeletal: Reports no additional musculoskeletal complaints Integumentary/Breasts: Skin/Breast: Reports system reviewed and no additional complaints, except as docu Neurologic: Reports system reviewed and no additional complaints, except as documented Psychiatric: Psychiatric: Reports no additional psychiatric complaints Functional Status Ambulation Ability Ability to Ambulate 10 Feet: Contact Guard Ability to Ambulate 50 Feet With 2 Turns: Contact Guard Ability to Ambulate 150 Feet: Contact Guard Ambulation Assistive Devices: Walker, Wheeled Transfers Ability Ability to Transfer In/Out of Chair: Moderate Assistance X 1 Exam Const: General: comfortable and no acute distress HENMT: General nose exam: Normal nares present Mouth: Yes moist mucous membranes Eyes: General: appearance normal, both eyes and all related structures Neck: Neck: supple and no JVD Resp: Effort & Inspection: normal respiratory effort Auscultation: clear to auscultation bilaterally Cardio: Rate: regular rate Rhythm: regular rhythm GI: GI Palp: Yes Soft to palpation Auscultation: normal bowel sounds Skin: General skin exam: normal color and no rashes or lesions noted Neuro: Other: patient's is speech and language functions are improving and right-sided weakness is also improving however not to her satisfaction yet but she is moving forward in the therapy and gaining grounds Objective Data Vital Signs Vital Signs: Vital Signs - 24 hr 12/04/19 22:00 12/05/19 06:00 Temperature 37.0 C 36.6 C Pulse Rate 72 69 Respiratory Rate 18 18 Blood Pressure 111/50 L 132/45 L Pulse Oximetry 97 100 Intake/Output Intake/Output: Intake & Output 12/02/19 12/03/19 12/04/19 12/05/19 23:59 23:59 23:59 23:59 Intake Total 720 840 680 240 Balance 720 840 680 240 Meds/Results Medications: Active Medications Generic Name Dose Route Start Last Admin Trade Name Freq PRN Reason Stop Dose Admin Acetaminophen 650 mg 11/28/19 11:18 11/28/19 11:59 Tylenol Tablet PO 650 mg Q6H PRN Administration Mild Pain (1-3) or Fever Amlodipine Besylate 10 mg 11/26/19 09:00 12/05/19 09:58 Norvasc PO 10 mg DAILY JOEY Administration Apixaban 5 mg 11/24/19 17:00 12/05/19 09:59 Eliquis PO 5 mg BID JOEY Administration Aspirin 81 mg 11/26/19 09:00 12/05/19 09:59 Aspirin Ec PO 81 mg DAILY JOEY Administration Atorvastatin Calcium 40 mg 11/25/19 09:00 12/05/19 09:59 Lipitor PO 40 mg DAILY JOEY Administration Dextrose 12.5 gm 11/24/19 14:00 Dextrose 50% Syringe IV PUSH PRN PRN Hypoglycemia Protocol Furosemide 40 mg 11/25/19 09:00 12/05/19 09:59 Lasix Tablet PO 40 mg DAILY JOEY Administration Glipizide 5 mg
[2019-12-05 17:34] LABS: Glucose Point of Care 174 (65-105)
[2019-12-05 21:16] VITALS: BP 123/40; PULSE 74; RESP 20; TEMP 36.8; O2SAT 97
[2019-12-06] MEDS: ACETAMINOPHEN 325 MG TABLET 650 MG PO ×2 (01:03→09:46)
[2019-12-06 06:00] VITALS: BP 123/41; PULSE 61; RESP 16; TEMP 36; O2SAT 100
[2019-12-06] MEDS: glipiZIDE 5 MG TABLET PO ×2 (06:41→17:59)
[2019-12-06 06:59] LABS: Glucose Point of Care 91 (65-105)
[2019-12-06] MEDS: POTASSIUM CHLORIDE 20 MEQ TABLET.ER PO (09:44)
[2019-12-06] MEDS: AMLODIPINE BESYLATE 5 MG TABLET 10 MG PO (09:44)
[2019-12-06] MEDS: APIXABAN 5 MG TABLET PO ×2 (09:45→17:59)
[2019-12-06] MEDS: FUROSEMIDE 40 MG TABLET PO (09:45)
[2019-12-06] MEDS: CHOLECALCIFEROL 1,000 UNIT TABLET 1000 UNITS PO (09:45)
[2019-12-06] MEDS: ATORVASTATIN 40 MG TABLET PO (09:45)
[2019-12-06] MEDS: lisinopriL 20 MG TABLET PO (09:45)
[2019-12-06] MEDS: ASPIRIN 81 MG ENTERIC TABLET PO (09:45)
[2019-12-06] MEDS: TAMSULOSIN HCL 0.4 MG CAPSULE PO (09:46)
[2019-12-06] MEDS: PIOGLITAZONE HCL 30 MG TABLET PO (09:46)
[2019-12-06 12:32] LABS: Glucose Point of Care 157 (65-105)
[2019-12-06] MEDS: TOLNAFTATE 1% POWDER 45 GM BTL 1 APPLIC TOPICAL ×3 (12:50→18:00)
[2019-12-06 14:00] VITALS: BP 112/48; PULSE 67; RESP 17; TEMP 36.3; O2SAT 100
[2019-12-06 18:05] LABS: Glucose Point of Care 149 (65-105)
[2019-12-06 22:00] VITALS: BP 101/45; PULSE 85; RESP 18; TEMP 36.5; O2SAT 97
[2019-12-06 22:11] LABS: Glucose Point of Care 147 (65-105)
[2019-12-07 06:00] VITALS: BP 121/49; PULSE 73; RESP 18; TEMP 36.7; O2SAT 94
[2019-12-07] MEDS: glipiZIDE 5 MG TABLET PO ×2 (06:43→17:15)
[2019-12-07 06:54] LABS: Glucose Point of Care 98 (65-105)
[2019-12-07] MEDS: CHOLECALCIFEROL 1,000 UNIT TABLET 1000 UNITS PO (08:36)
[2019-12-07] MEDS: AMLODIPINE BESYLATE 5 MG TABLET 10 MG PO (08:36)
[2019-12-07] MEDS: lisinopriL 20 MG TABLET PO (08:36)
[2019-12-07] MEDS: ATORVASTATIN 40 MG TABLET PO (08:36)
[2019-12-07] MEDS: ASPIRIN 81 MG ENTERIC TABLET PO (08:36)
[2019-12-07] MEDS: APIXABAN 5 MG TABLET PO ×2 (08:36→17:15)
[2019-12-07] MEDS: PIOGLITAZONE HCL 30 MG TABLET PO (08:36)
[2019-12-07] MEDS: POTASSIUM CHLORIDE 20 MEQ TABLET.ER PO (08:36)
[2019-12-07] MEDS: FUROSEMIDE 40 MG TABLET PO (08:36)
[2019-12-07] MEDS: TOLNAFTATE 1% POWDER 45 GM BTL 1 APPLIC TOPICAL ×3 (08:37→17:15)
[2019-12-07] MEDS: TAMSULOSIN HCL 0.4 MG CAPSULE PO (08:37)
[2019-12-07 11:47] LABS: Glucose Point of Care 201 (65-105)
[2019-12-07 14:00] VITALS: BP 116/33; PULSE 78; RESP 20; TEMP 36.4; O2SAT 100
--- NOTE | 2019-12-07 14:10 | WPDNEURORHBP ---
Subjective Date/time seen: 12/07/19 14:10 Interval history: this 64-year-old woman is here after suffering from a stroke which has given her right-sided hemiparesis and difficulty performing gait to his daily living the speech and language functions are returning being close to normal she denies any headache chest pain shortness of breath abdominal pain and diarrhea vomiting or trouble urination Review of Systems Constitutional: Constitutional: Reports no additional constitutional complaints Eyes: Eyes: Reports no additional eye complaints ENT: Reports system reviewed and no additional complaints, except as documented Cardiovascular: Cardiovascular: Reports no additional cardiovascular complaints Respiratory: Respiratory: Reports no additional respiratory complaints Gastrointestinal: Gastrointestinal: Reports no additional gastrointestinal complaints Genitourinary: Genitourinary: Reports no additional female genitourinary complaints Musculoskeletal: Musculoskeletal: Reports no additional musculoskeletal complaints Integumentary/Breasts: Skin/Breast: Reports system reviewed and no additional complaints, except as docu Neurologic: Reports system reviewed and no additional complaints, except as documented Psychiatric: Psychiatric: Reports no additional psychiatric complaints Functional Status Ambulation Ability Ability to Ambulate 10 Feet: Contact Guard Ability to Ambulate 50 Feet With 2 Turns: Contact Guard Ability to Ambulate 150 Feet: Contact Guard Ambulation Assistive Devices: Walker, Wheeled Transfers Ability Ability to Transfer In/Out of Chair: Moderate Assistance X 1 Exam Const: General: comfortable and no acute distress HENMT: General nose exam: Normal nares present Mouth: Yes moist mucous membranes Eyes: General: appearance normal, both eyes and all related structures Neck: Neck: supple and no JVD Resp: Effort & Inspection: normal respiratory effort Auscultation: clear to auscultation bilaterally Cardio: Rate: regular rate Rhythm: regular rhythm GI: GI Palp: Yes Soft to palpation Auscultation: normal bowel sounds Skin: General skin exam: normal color and no rashes or lesions noted Neuro: Other: patient is awake and alert well oriented time place and person has a decent speech and language function and able to engage in therapy the right-sided hemiparesis is improving Extrem: General: normal to inspection Objective Data Vital Signs Vital Signs: Vital Signs - 24 hr 12/06/19 22:00 12/07/19 06:00 Temperature 36.5 C 36.7 C Pulse Rate 85 73 Respiratory Rate 18 18 Blood Pressure 101/45 L 121/49 L Pulse Oximetry 97 94 Intake/Output Intake/Output: Intake & Output 12/04/19 12/05/19 12/06/19 12/07/19 23:59 23:59 23:59 23:59 Intake Total 680 720 720 240 Balance 680 720 720 240 Meds/Results Medications: Active Medications Generic Name Dose Route Start Last Admin Trade Name Freq PRN Reason Stop Dose Admin Acetaminophen 650 mg 11/28/19 11:18 12/06/19 09:46 Tylenol Tablet PO 650 mg Q6H PRN Administration Mild Pain (1-3) or Fever Amlodipine Besylate 10 mg 11/26/19 09:00 12/07/19 08:36 Norvasc PO 10 mg DAILY JOEY Administration Apixaban 5 mg 11/24/19 17:00 12/07/19 08:36 Eliquis PO 5 mg BID JOEY Administration Aspirin 81 mg 11/26/19 09:00 12/07/19 08:36 Aspirin Ec PO 81 mg DAILY JOEY Administration Atorvastatin Calcium 40 mg 11/25/19 09:00 12/07/19 08:36 Lipitor PO 40 mg DAILY JOEY Administration Dextrose 12.5 gm 11/24/19 14:00 Dextrose 50% Syringe IV PUSH PRN PRN Hypoglycemia Protocol Furosemide 40 mg 11/25/19 09:00 12/07/19 08:36 Lasix Tablet PO 40 mg DAILY JOEY Administration Glipizide 5 mg 11/24/19 16:30 12/07/19 06:43 Glucotrol PO 5 mg BIDAC JOEY Administration Glucagon 1 mg 11/24/19 14:00 Glucagon For Inj IM PRN PRN Hypoglycemia Protocol Glucos
--- NOTE | 2019-12-07 15:17 | PCCCNOTE ---
On 12/07/19, the student, [Stan Patel ], provided care and completed [facility] documentation on this patient. I have reviewed the student's documentation and agree with the findings.
[2019-12-07] MEDS: ACETAMINOPHEN 325 MG TABLET 650 MG PO (15:33)
[2019-12-07 16:46] LABS: Glucose Point of Care 145 (65-105)
[2019-12-07 21:49] VITALS: BP 112/68; PULSE 73; RESP 20; TEMP 36.3; O2SAT 97
[2019-12-08 06:00] VITALS: BP 103/54; PULSE 82; RESP 18; TEMP 36.1; O2SAT 96
[2019-12-08] MEDS: glipiZIDE 5 MG TABLET PO ×2 (06:37→17:48)
[2019-12-08 07:27] LABS: Glucose Point of Care 111 (65-105)
[2019-12-08] MEDS: CHOLECALCIFEROL 1,000 UNIT TABLET 1000 UNITS PO (10:04)
[2019-12-08] MEDS: AMLODIPINE BESYLATE 5 MG TABLET 10 MG PO (10:04)
[2019-12-08] MEDS: APIXABAN 5 MG TABLET PO ×2 (10:04→17:48)
[2019-12-08] MEDS: ASPIRIN 81 MG ENTERIC TABLET PO (10:04)
[2019-12-08] MEDS: POTASSIUM CHLORIDE 20 MEQ TABLET.ER PO (10:04)
[2019-12-08] MEDS: ATORVASTATIN 40 MG TABLET PO (10:04)
[2019-12-08] MEDS: TAMSULOSIN HCL 0.4 MG CAPSULE PO (10:05)
[2019-12-08] MEDS: TOLNAFTATE 1% POWDER 45 GM BTL 1 APPLIC TOPICAL ×3 (10:05→17:49)
[2019-12-08] MEDS: lisinopriL 20 MG TABLET PO (10:05)
[2019-12-08] MEDS: PIOGLITAZONE HCL 30 MG TABLET PO (10:05)
[2019-12-08] MEDS: FUROSEMIDE 40 MG TABLET PO (10:05)
[2019-12-08 12:07] LABS: Glucose Point of Care 111 (65-105)
--- NOTE | 2019-12-08 13:42 | WPDNEURORHBP ---
Subjective Date/time seen: 12/08/19 13:42 Interval history: patient continues to improve after having had a stroke which had given her expressive aphasia and right-sided hemiparesis she still has significant deficit and needs a motorized scooter as per assessment off the physical therapist prior to discharge The paperwork will be completed whenever it is available for the motorized scooter patient denies any headache chest pain shortness of breath or any new neurological findings she denies any fever chills abdominal pain diarrhea Review of Systems Review of Systems: All systems reviewed & are unremarkable except as noted in HPI and below Functional Status Ambulation Ability Ability to Ambulate 10 Feet: Standby Assistance Ability to Ambulate 50 Feet With 2 Turns: Standby Assistance Ability to Ambulate 150 Feet: Contact Guard Ambulation Assistive Devices: Walker, Wheeled Transfers Ability Ability to Transfer In/Out of Chair: Moderate Assistance X 1 Exam Const: General: comfortable and no acute distress HENMT: General nose exam: Normal nares present Mouth: Yes moist mucous membranes Eyes: General: appearance normal, both eyes and all related structures Neck: Neck: supple and no JVD Resp: Effort & Inspection: normal respiratory effort Auscultation: clear to auscultation bilaterally Cardio: Rate: regular rate Rhythm: regular rhythm GI: GI Palp: Yes Soft to palpation Auscultation: normal bowel sounds Skin: General skin exam: normal color and no rashes or lesions noted Neuro: Other: patient is speech and language functions are getting much better right-sided weakness is also getting better however not at Face with the speech and language function overall however she has improved Extrem: General: normal to inspection Objective Data Vital Signs Vital Signs: Vital Signs - 24 hr 12/07/19 14:00 12/07/19 21:49 12/08/19 06:00 Temperature 36.4 C L 36.3 C L 36.1 C L Pulse Rate 78 73 82 Respiratory Rate 20 20 18 Blood Pressure 116/33 L 112/68 103/54 L Pulse Oximetry 100 97 96 Intake/Output Intake/Output: Intake & Output 12/05/19 12/06/19 12/07/19 12/08/19 23:59 23:59 23:59 23:59 Intake Total 720 720 660 Balance 720 720 660 Meds/Results Medications: Active Medications Generic Name Dose Route Start Last Admin Trade Name Freq PRN Reason Stop Dose Admin Acetaminophen 650 mg 11/28/19 11:18 12/07/19 15:33 Tylenol Tablet PO 650 mg Q6H PRN Administration Mild Pain (1-3) or Fever Amlodipine Besylate 10 mg 11/26/19 09:00 12/08/19 10:04 Norvasc PO 10 mg DAILY JOEY Administration Apixaban 5 mg 11/24/19 17:00 12/08/19 10:04 Eliquis PO 5 mg BID JOEY Administration Aspirin 81 mg 11/26/19 09:00 12/08/19 10:04 Aspirin Ec PO 81 mg DAILY JOEY Administration Atorvastatin Calcium 40 mg 11/25/19 09:00 12/08/19 10:04 Lipitor PO 40 mg DAILY JOEY Administration Dextrose 12.5 gm 11/24/19 14:00 Dextrose 50% Syringe IV PUSH PRN PRN Hypoglycemia Protocol Furosemide 40 mg 11/25/19 09:00 12/08/19 10:05 Lasix Tablet PO 40 mg DAILY JOEY Administration Glipizide 5 mg 11/24/19 16:30 12/08/19 06:37 Glucotrol PO 5 mg BIDAC JOEY Administration Glucagon 1 mg 11/24/19 14:00 Glucagon For Inj IM PRN PRN Hypoglycemia Protocol Glucose 15 gm 11/24/19 14:00 Glutose 15 PO PRN PRN Hypoglycemia Protocol Dextrose 1,000 mls @ 100 mls/hr 11/24/19 14:00 Dextrose 5% 1,000 Ml IVPB PRN PRN Hypoglycemia Protocol Insulin Aspart 4 - 8 units 11/24/19 17:00 12/08/19 10:03 Novolog SUB-Q Not Given [facility] Protocol Lisinopril 20 mg 11/27/19 15:48 12/08/19 10:05 Prinivil PO 20 mg DAILY JOEY Administration Oxybutynin Chloride 5 mg 11/24/19 17:00 12/08/19 10:05 Ditropan Xl PO 5 mg BID JOEY Administration Pioglitazone HCl 30 mg 11/25/19 09:00 0
[2019-12-08 14:00] VITALS: BP 122/64; PULSE 86; RESP 18; TEMP 36.5; O2SAT 96
[2019-12-08] MEDS: ACETAMINOPHEN 325 MG TABLET 650 MG PO (14:10)
[2019-12-08 16:59] LABS: Glucose Point of Care 177 (65-105)
[2019-12-08 21:49] VITALS: BP 111/52; PULSE 67; RESP 20; TEMP 36.7; O2SAT 100
[2019-12-09 05:11] LABS: Basophils Percent Auto 0.5 % (0.2-1.2); Eosinophils Absolute Auto 0.2 K/mm3 (0-0.3); Hematocrit 29.3 % (37.0-47.0); Hemoglobin 9.2 g/dL (12.0-15.0); Immature Granulocyte Absolute 0.01 K/mm3 (0.00-0.031); Immature Granulocyte Percent A 0.2 % (0-0.5); Immature Platelet Fraction Pct 6.8 % (0.9-11.2); Lymphocytes Absolute Auto 1.26 K/mm3 (0.9-3.2); Lymphocytes Percent Auto 31.4 % (18.3-44.2); Mean Corpuscular HGB Conc 31.4 g/dl (32-36); Mean Corpuscular Hemoglobin 27.5 pg (26-34); Mean Corpuscular Volume 87.7 fl (80-100); Mean Platelet Volume 12.9 fl (7.4-10.4); Monocytes Absolute Auto 0.5 K/mm3 (0.1-0.6); Monocytes Percent Auto 12.7 % (2.6-8.5); Neutrophils Absolute Auto 2.1 K/mm3 (1.3-6.7); Neutrophils Percent Auto 51.2 % (45.5-73.1); Platelet Count Result 130 k/mm3 (150-375); Red Blood Count 3.34 M/mm3 (4.2-5.4); Red Cell Distribution Width 14.9 % (11.5-14.5)
[2019-12-09 05:24] LABS: Blood Urea Nitrogen 56 mg/dL (7-17); Calcium 9.8 mg/dL (8.4-10.2); Carbon Dioxide 26 mmol/L (22-30); Chloride 101 mmol/L (98-107); Estimated CRCL calculation 62 ml/min; Estimated Glomerular Filt Rate > 60; Glucose 101 mg/dL (65-105); Potassium 4.6 mmol/L (3.4-5.0); Sodium 136 mmol/L (137-145)
[2019-12-09 06:00] VITALS: BP 115/45; PULSE 64; RESP 20; TEMP 36.5; O2SAT 100
[2019-12-09] MEDS: glipiZIDE 5 MG TABLET PO ×2 (06:36→17:52)
[2019-12-09 06:54] LABS: Glucose Point of Care 107 (65-105)
[2019-12-09] MEDS: TAMSULOSIN HCL 0.4 MG CAPSULE PO (09:21)
[2019-12-09] MEDS: APIXABAN 5 MG TABLET PO ×2 (09:22→17:53)
[2019-12-09] MEDS: POTASSIUM CHLORIDE 20 MEQ TABLET.ER PO (09:22)
[2019-12-09] MEDS: ATORVASTATIN 40 MG TABLET PO (09:22)
[2019-12-09] MEDS: FUROSEMIDE 40 MG TABLET PO (09:22)
[2019-12-09] MEDS: ASPIRIN 81 MG ENTERIC TABLET PO (09:22)
[2019-12-09] MEDS: CHOLECALCIFEROL 1,000 UNIT TABLET 1000 UNITS PO (09:22)
[2019-12-09] MEDS: AMLODIPINE BESYLATE 5 MG TABLET 10 MG PO (09:22)
[2019-12-09] MEDS: lisinopriL 20 MG TABLET PO (09:23)
[2019-12-09] MEDS: TOLNAFTATE 1% POWDER 45 GM BTL 1 APPLIC TOPICAL ×3 (09:23→17:53)
[2019-12-09] MEDS: PIOGLITAZONE HCL 30 MG TABLET PO (09:24)
[2019-12-09 11:49] LABS: Glucose Point of Care 142 (65-105)
--- NOTE | 2019-12-09 12:57 | PCDIET ---
Nutrition Follow-Up Complete: Nutrition Diagnosis: Obese, Class II related to excessive caloric intake as evidenced by BMI of 36.5. Nutrition Goal: Patient will continue to eat 100% of meals. Goal met. Patient consuming 75-100% of meals on diabetic, heart healthy diet. Patient reports good appetite, but is growing tired of food choices. Last recorded weight is 96.4 kg. Recommend obtaining new weight. Bowel Motility: +BM on 12/06/19. Labs Reviewed: BUN (56), Na (136) Meds Noted: Lasix, Glucotrol, Novolog, Actos, KCl, Vitamin D Additional Notes: Abdomen with macerated skin folds. No documented pressure sores. Recommend continuing current diet. Nutrition Monitoring and Evaluation: Will follow up in 7 days with same goal.
[2019-12-09 14:00] VITALS: BP 101/28; PULSE 78; RESP 18; TEMP 36.6; O2SAT 99
--- NOTE | 2019-12-09 15:56 | PCCCNOTE ---
On 12/09/19, the student, [Stan Patel ], provided care and completed [facility] documentation on this patient. I have reviewed the student's documentation and agree with the findings.
[2019-12-09 17:00] LABS: Glucose Point of Care 190 (65-105)
[2019-12-09 20:46] LABS: Glucose Point of Care 169 (65-105)
[2019-12-09 22:00] VITALS: BP 107/51; PULSE 71; RESP 18; TEMP 36.4; O2SAT 98
[2019-12-09] MEDS: ACETAMINOPHEN 325 MG TABLET 650 MG PO (23:38)
[2019-12-10] MEDS: ACETAMINOPHEN 325 MG TABLET 650 MG PO ×2 (05:43→14:15)
[2019-12-10] MEDS: glipiZIDE 5 MG TABLET PO ×2 (05:44→17:28)
[2019-12-10 06:00] VITALS: BP 119/54; PULSE 72; RESP 18; TEMP 36.3; O2SAT 95
[2019-12-10 07:06] LABS: Glucose Point of Care 115 (65-105)
[2019-12-10] MEDS: CHOLECALCIFEROL 1,000 UNIT TABLET 1000 UNITS PO (08:52)
[2019-12-10] MEDS: ASPIRIN 81 MG ENTERIC TABLET PO (08:52)
[2019-12-10] MEDS: POTASSIUM CHLORIDE 20 MEQ TABLET.ER PO (08:52)
[2019-12-10] MEDS: PIOGLITAZONE HCL 30 MG TABLET PO (08:52)
[2019-12-10] MEDS: lisinopriL 20 MG TABLET PO (08:52)
[2019-12-10] MEDS: APIXABAN 5 MG TABLET PO ×2 (08:52→17:28)
[2019-12-10] MEDS: AMLODIPINE BESYLATE 5 MG TABLET 10 MG PO (08:53)
[2019-12-10] MEDS: TAMSULOSIN HCL 0.4 MG CAPSULE PO (08:53)
[2019-12-10] MEDS: FUROSEMIDE 40 MG TABLET PO (08:53)
[2019-12-10] MEDS: TOLNAFTATE 1% POWDER 45 GM BTL 1 APPLIC TOPICAL ×3 (08:54→17:31)
[2019-12-10] MEDS: ATORVASTATIN 40 MG TABLET PO (10:27)
[2019-12-10 11:57] LABS: Glucose Point of Care 228 (65-105)
[2019-12-10] MEDS: INSULIN ASPART (*BKC) 100 UNITS/ML SUB-Q ×2 (12:11→17:28)
[2019-12-10 14:00] VITALS: BP 110/45; PULSE 67; RESP 17; TEMP 36.2; O2SAT 100
[2019-12-10 17:02] LABS: Glucose Point of Care 225 (65-105)
[2019-12-10 20:00] VITALS: PULSE 68; RESP 17; O2SAT 98
[2019-12-10 22:00] VITALS: BP 93/26; PULSE 68; RESP 17; TEMP 36.3; O2SAT 98
[2019-12-11 06:00] VITALS: BP 109/60; PULSE 80; RESP 19; TEMP 36.2; O2SAT 100
[2019-12-11 06:38] LABS: Glucose Point of Care 107 (65-105)
[2019-12-11] MEDS: glipiZIDE 5 MG TABLET PO ×2 (06:38→18:30)
[2019-12-11] MEDS: FUROSEMIDE 40 MG TABLET PO (09:58)
[2019-12-11] MEDS: ATORVASTATIN 40 MG TABLET PO (09:58)
[2019-12-11] MEDS: CHOLECALCIFEROL 1,000 UNIT TABLET 1000 UNITS PO (09:58)
[2019-12-11] MEDS: AMLODIPINE BESYLATE 5 MG TABLET 10 MG PO (09:58)
[2019-12-11] MEDS: APIXABAN 5 MG TABLET PO ×2 (09:59→18:30)
[2019-12-11] MEDS: lisinopriL 20 MG TABLET PO (09:59)
[2019-12-11] MEDS: TOLNAFTATE 1% POWDER 45 GM BTL 1 APPLIC TOPICAL ×3 (09:59→18:30)
[2019-12-11] MEDS: ASPIRIN 81 MG ENTERIC TABLET PO (09:59)
[2019-12-11] MEDS: TAMSULOSIN HCL 0.4 MG CAPSULE PO (09:59)
[2019-12-11] MEDS: PIOGLITAZONE HCL 30 MG TABLET PO (09:59)
[2019-12-11] MEDS: POTASSIUM CHLORIDE 20 MEQ TABLET.ER PO (09:59)
--- NOTE | 2019-12-11 11:33 | WPDNEURORHBP ---
Subjective Date/time seen: 12/11/19 11:33 Review of Systems Review of Systems: All systems reviewed & are unremarkable except as noted in HPI and below Functional Status Ambulation Ability Ability to Ambulate 10 Feet: Contact Guard Ability to Ambulate 50 Feet With 2 Turns: Contact Guard Ability to Ambulate 150 Feet: Contact Guard Ambulation Assistive Devices: Walker, Wheeled Transfers Ability Ability to Transfer In/Out of Chair: Moderate Assistance X 1 Exam Const: General: cooperative, healthy appearing, comfortable and no acute distress HENMT: Head: normal to inspection Ears: hearing grossly normal bilaterally General nose exam: Normal external nose present Face and sinus: normal facial exam Mouth: Yes Normal oral and palatal mucosa present Eyes: General: appearance normal, both eyes and all related structures Neck: Neck: full ROM and no lymphadenopathy Resp: Effort & Inspection: normal respiratory effort Auscultation: clear to auscultation bilaterally Cardio: Jugular venous distension: no JVD Rate: regular rate Rhythm: regular rhythm GI: Auscultation: normal bowel sounds Skin: General skin exam: no rashes or lesions noted Neuro: General: patient oriented x3 and moves all extremities Speech: normal speech (improving speech along with right sided weekness) Gait exam (Neuro): Other gait observations present (right hemiparesis improving) Objective Data Vital Signs Vital Signs: Vital Signs - 24 hr 12/10/19 14:00 12/10/19 20:00 12/10/19 22:00 Temperature 36.2 C L 36.3 C L Pulse Rate 67 68 68 Respiratory Rate 17 17 17 Blood Pressure 110/45 L 93/26 L Pulse Oximetry 100 98 98 12/11/19 06:00 Temperature 36.2 C L Pulse Rate 80 Respiratory Rate 19 Blood Pressure 109/60 Pulse Oximetry 100 Intake/Output Intake/Output: Intake & Output 12/08/19 12/09/19 12/10/19 12/11/19 23:59 23:59 23:59 23:59 Intake Total 010 385 5547 240 Balance 382 822 6030 240 Meds/Results Medications: Active Medications Generic Name Dose Route Start Last Admin Trade Name Freq PRN Reason Stop Dose Admin Acetaminophen 650 mg 11/28/19 11:18 12/10/19 14:15 Tylenol Tablet PO 650 mg Q6H PRN Administration Mild Pain (1-3) or Fever Amlodipine Besylate 10 mg 11/26/19 09:00 12/11/19 09:58 Norvasc PO 10 mg DAILY JOEY Administration Apixaban 5 mg 11/24/19 17:00 12/11/19 09:59 Eliquis PO 5 mg BID JOEY Administration Aspirin 81 mg 11/26/19 09:00 12/11/19 09:59 Aspirin Ec PO 81 mg DAILY JOEY Administration Atorvastatin Calcium 40 mg 11/25/19 09:00 12/11/19 09:58 Lipitor PO 40 mg DAILY JOEY Administration Dextrose 12.5 gm 11/24/19 14:00 Dextrose 50% Syringe IV PUSH PRN PRN Hypoglycemia Protocol Furosemide 40 mg 11/25/19 09:00 12/11/19 09:58 Lasix Tablet PO 40 mg DAILY JOEY Administration Glipizide 5 mg 11/24/19 16:30 12/11/19 06:38 Glucotrol PO 5 mg BIDAC JOEY Administration Glucagon 1 mg 11/24/19 14:00 Glucagon For Inj IM PRN PRN Hypoglycemia Protocol Glucose 15 gm 11/24/19 14:00 Glutose 15 PO PRN PRN Hypoglycemia Protocol Dextrose 1,000 mls @ 100 mls/hr 11/24/19 14:00 Dextrose 5% 1,000 Ml IVPB PRN PRN Hypoglycemia Protocol Insulin Aspart 4 - 8 units 11/24/19 17:00 12/11/19 09:56 Novolog SUB-Q Not Given [facility] Protocol Lisinopril 20 mg 11/27/19 15:48 12/11/19 09:59 Prinivil PO 20 mg DAILY JOEY Administration Oxybutynin Chloride 5 mg 11/24/19 17:00 12/11/19 09:59 Ditropan Xl PO 5 mg BID JOEY Administration Pioglitazone HCl 30 mg 11/25/19 09:00 12/11/19 09:59 Actos PO 30 mg QAM JOEY Administration Potassium Chloride 20 meq 11/26/19 08:00 12/11/19 09:59 Kcl Tablet PO 20 meq DAILY@0800 JOEY Administration Tamsulosin HCl 0.4 mg 11/25/19 09:00 12/11/19 09:59 Flomax PO 0.4 mg DAILY
[2019-12-11 12:15] LABS: Glucose Point of Care 232 (65-105)
[2019-12-11] MEDS: INSULIN ASPART (*BKC) 100 UNITS/ML SUB-Q (13:17)
[2019-12-11 14:00] VITALS: BP 98/58; PULSE 74; RESP 19; TEMP 36.4; O2SAT 94
[2019-12-11 17:09] LABS: Glucose Point of Care 139 (65-105)
[2019-12-11 22:00] VITALS: BP 101/50; PULSE 75; RESP 16; TEMP 36.4; O2SAT 96
[2019-12-12 05:04] VITALS: BP 106/48; PULSE 61; RESP 18; TEMP 36.2; O2SAT 95
[2019-12-12] MEDS: glipiZIDE 5 MG TABLET PO (06:41)
[2019-12-12 06:58] LABS: Glucose Point of Care 135 (65-105)
[2019-12-12] MEDS: POTASSIUM CHLORIDE 20 MEQ TABLET.ER PO (10:04)
[2019-12-12] MEDS: AMLODIPINE BESYLATE 5 MG TABLET 10 MG PO (10:05)
[2019-12-12] MEDS: ASPIRIN 81 MG ENTERIC TABLET PO (10:05)
[2019-12-12] MEDS: CHOLECALCIFEROL 1,000 UNIT TABLET 1000 UNITS PO (10:05)
[2019-12-12] MEDS: ATORVASTATIN 40 MG TABLET PO (10:05)
[2019-12-12] MEDS: FUROSEMIDE 40 MG TABLET PO (10:05)
[2019-12-12] MEDS: APIXABAN 5 MG TABLET PO (10:05)
[2019-12-12] MEDS: lisinopriL 20 MG TABLET PO (10:05)
[2019-12-12] MEDS: TAMSULOSIN HCL 0.4 MG CAPSULE PO (10:05)
[2019-12-12] MEDS: PIOGLITAZONE HCL 30 MG TABLET PO (10:06)
[2019-12-12] MEDS: TOLNAFTATE 1% POWDER 45 GM BTL 1 APPLIC TOPICAL (10:06)
--- NOTE | 2019-12-18 08:50 | DS_ITS ---
DATE OF DISCHARGE: 12/12/2019 DISCHARGE ACUTE REHAB DIAGNOSIS: Category 01/stroke. ETIOLOGICAL DIAGNOSIS: Left parietal and frontal lobe stroke. DISCHARGE ACTIVE COMORBID CONDITIONS: 1. Congestive heart failure. 2. Type 2 diabetes mellitus. REASON FOR ADMISSION: This 64-year-old right-handed female with past medical history of stroke with right-sided weakness, congestive heart failure, type 2 diabetes mellitus, presented to [facility] on 11/19/2019, with an acute onset of weakness on the right side. The patient had been off aspirin and Eliquis for the last 5 days prior to admission in preparation for a colonoscopy. CT of the head was negative for any acute abnormality. CTA of the head and neck revealed occluded right internal carotid artery beginning at the level of bifurcation, proximal ICA high-grade stenosis, left vertebral intracranial segment calcific disease with moderate stenosis. She received tPA and was admitted to ICU for further treatment. Neurology was consulted and patient was started on apixaban and aspirin. Bedside swallowing study was completed. Speech and Language Pathology found no signs or symptoms of aspiration or dysphagia. She was recommended for regular consistency diet with thin liquids. During the hospitalization, she was noted to have the right hemiparesis, renal injury, and hypertension, which was being managed by the medication. She was awake, alert, oriented x3 with impaired balance, decreased coordination, decreased strength, and decreased endurance with right-sided hemiparesis affecting much more proximal muscle in the lower extremities and was also taking the Eliquis. LEVEL OF FUNCTION AT THE TIME OF ADMISSION: She required setup for eating, supervision for oral hygiene, substantial assistance for toileting and bathing, partial assistance for upper body dressing, footwear, rolling in bed, sit to lying, lying to sitting, substantial assistance for lower body dressing, sit to stand, chair transfer, toilet transfer, car transfer, partial assistance for walking 10 feet, 50 feet with 2 turns, 150 feet, task 10 feet on uneven surfaces. She required substantial assistance for the curb or step. She was unable to walk 150 feet, 4 steps, 12 steps, or uneven surfaces. She required partial assistance for picking up object and the wheelchair for 50 feet. She was unable to perform wheelchair for 150 feet. ANTICIPATED REHAB GOALS: Were at the time of admission to make her independent in eating and oral hygiene, require only supervision for toileting, setup for bathing, upper body dressing, lower body dressing, footwear; become independent rolling in bed, sit to lying, lying to sitting, sit to stand, chair transfer, toilet transfer, require only setup for the car transfer, become at least independent walking 10 feet, 50 feet with 2 turns, 150 feet, 10 feet on uneven surfaces, picking up object, wheelchair. 50 and 150 feet and require only setup for the curb or step, 4 steps, but dependent for the 12 steps. LEVEL OF FUNCTION AT THE TIME OF DISCHARGE: She required only setup for eating and oral hygiene, supervision for toileting, partial assistance for bathing, supervision for upper body dressing, partial assistance for lower body dressing, footwear, supervision for rolling in bed, partial for the sit to lying, lying to sitting, sit to stand, chair transfer, car transfer, supervision for toilet transfer, 10 feet walking, 50 feet walking with 2 turns, 10 feet, walking on uneven surfaces, curb or step, 4 steps. She was unable to walk 150 feet, unable to carry the 12 steps on uneven surfaces, and required supervision for the picking up object, wheelchair for 50 or 150 feet. HOSPITAL COURSE: During the entire hospitalization, she was actively involved in the physical therapy
== END 2019-12-12 13:15 | disposition home health service (06) | DRG 57 ==
PROVIDERS: Admitting Provider Psychiatry & Neurology Neurology; Visit Provider Psychiatry & Neurology Neurology
DX: I69.351 Hemiplegia and hemiparesis following cerebral infarction affecting right dominant side (principal); I69.320 Aphasia following cerebral infarction; E11.42 Type 2 diabetes mellitus with diabetic polyneuropathy; I65.23 Occlusion and stenosis of bilateral carotid arteries; I65.02 Occlusion and stenosis of left vertebral artery; I50.9 Heart failure, unspecified; I11.0 Hypertensive heart disease with heart failure; Z79.01 Long term (current) use of anticoagulants; Z72.0 Tobacco use; Z79.4 Long term (current) use of insulin; Z79.82 Long term (current) use of aspirin
CPT/HCPCS: 36415; 70450; 80048; 80061; 81001; 83036; 85025; 85055; 87081; 92507; 92522; 92523; 97110; 97112; 97116; 97150; 97162; 97166; 97530; 97535; 97542; A9270; J1815